=== PATIENT | male | born 1930 | race Caucasian/White ===

== ENCOUNTER 2017-04-09 21:47 | Inpatient (IN) | payer OTHER, BC ==
[~2017-04-09] VITALS: Ht 185.4 cm; Wt 76.7 kg
--- NOTE | ~2017-04-09 | EKG ---
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
--- NOTE | ~2017-04-09 | CATHLAB ---
[facility] [place] [address] INVASIVE PROCEDURE REPORT Name: EDGAR CORRAL Room #: 217-P [facility] IN ..#: [id number] Admission: 04/09/17 Attend Phys: Lowell Flores, Discharge: 04/15/17 Date of : 34 Date of Service: 04/23/17 0043 Report #: [id number] THIS REPORT FOR: //name// CC: Jj Urena DATE OF SERVICE: 04/12/2017 DATE OF SERVICE: 04/12/2017. INDICATIONS: An 86-year-old male patient with non-ST segment elevation myocardial infarction and previously undiagnosed ischemic cardiomyopathy. PROCEDURES PERFORMED: 1. Percutaneous transluminal coronary angioplasty of the first diagonal branch of the left anterior descending. 2. Percutaneous transluminal coronary angioplasty of the proximal and proximal mid left anterior descending artery. 3. Supervision of conscious sedation. CHANGE MANAGEMENT CONSULTANT: Dash Balbuena M.D. BRIEF DESCRIPTION OF PROCEDURE: After informed consent was obtained, the patient was brought to the cardiac catheterization laboratory in stable condition. ACT was obtained per standard protocol utilizing a modified Seldinger technique. A standard left JL4 guide was then advanced under fluoroscopic visualization present protocol and engaged to left coronary ostium where the guiding shots were obtained. An 0.014 wire was then advanced into the first diagonal branch and a 2.0 mm balloon was then positioned across the lesion. Multiple inflations were performed as documented in the chart. The result was significantly improved. The wire was then advanced into the mid and distal LAD and the balloon was brought to the proximal lesion which was heavily calcified and quite angulated. Multiple inflations of this 90% lesion were then performed with successful dilatation. Residual was 20-25%. Following the dilatation, attempted stent deployment that was carried forward was unable to deploy a stent to the region due to tortuosity. Wires were removed. Final images were obtained, pressures noted and the guide was removed. The patient tolerated the procedure well without any complications. FINDINGS: 1. FLUOROSCOPY: Under fluoroscopic visualization, there was extensive calcific plaquing along the epicardial coronary arteries. There was no plaquing on the valvular intramyocardial structures of the heart. 2. HEMODYNAMICS: A. Preprocedure aortic pressure 137/ . [facility] [address] [place] [address] INVASIVE PROCEDURE REPORT Name: EDGAR CORRAL Room #: 217-P [facility] IN [facility].#: [id number] Admission: 04/09/17 Attend Phys: Lowell Flores, Discharge: 04/15/17 Date of : 34 Date of Service: 04/23/17 0043 Report #: [id number] B. Postprocedure aortic pressure 131/79. 3. FLUOROSCOPY: Under fluoroscopic visualization, there was extensive calcific plaquing along the proximal left anterior and first diagonal branch. No significant calcification on the valvular intramyocardial structures of the heart were noted. 4. ANGIOGRAPHY: A. Preprocedure left anterior descending coronary anatomy: It is a moderate caliber type 3 vessel which has an angulated calcified 90% lesion proximally. It then reconstitutes itself giving rise to a first diagonal branch which is between 1.75 and 2.25 mm in diameter with a 90% lesion. The vessel continues on an anterolateral wall free of high-grade disease. The LAD proper then continues in the anterior interventricular sulcus giving rise to septal and diagonal branches and tapering rapidly as it hooks the apex and terminates in the posterior aspect of the inferoapical wall. B. POST-DILATATION ANGIOGRAPHY: Left anterior descending artery is unchanged except for the following at the site of previous high-grade disease at the first diagonal branch. The vessel is widely patent. Residual less than 20%. Flow is brisk and no loss of side branch, there is no distal embolization is present. The LAD proper has a residual 20-25% with widely patent and much smooth appearing edges. SAMREEN flow is 3. IMPRESSION: 1. Coronary artery disease, severe, single vessel. 2. Successful percutaneous revascularization of the first diagonal branch and the proximal LAD. 3. Recommendations are to optimize medical regimen. <ELECTRONICALLY SIGNED> By: Dash Balbuena MD 04/23/17 1747 0043 1322 Dash Balbuena MD /nt
--- NOTE | ~2017-04-09 | 2DMMODE ---
[facility] [place] [address] 2 D/M-MODE ECHOCARDIOGRAM Name: ELLISEDGAR Bhatt Room #: 217-P [facility] IN ..#: [id number] Admission: 04/09/17 Attend Phys: Lowell Flores, Discharge: Date of : 32 Date of Service: 04/10/17 1236 Report #: [id number] THIS REPORT FOR: //name// APPROVED REPORT Study performed: 04/10/2017 09:41:10 EXAM: Comprehensive 2D, Doppler, and color-flow Echocardiogram Patient Location: Echo lab Room #: [facility] Blood Pressure: 96/54 mmHg Other Information Study Quality: Good Indications Diabetes Chest Pain Hypertension/HDD 2D Dimensions RVDd: 40.34 mm LVEF(%): 37.32 (>50%) IVSd: 9.97 (7-11mm) LVOT Diam: 19.63 (18-24mm) LVDd: 64.12 mm PWd: 10.03 (7-11mm) Ascending Ao: 37.53 (22-36mm) LVDs: 52.30 (25-40mm) Aortic Root: 37.55 mm IVC: 19.00 mm Orona's LVEF: 37.32 % Volumes Left Atrial Volume (Systole) Single Plane 4CH: 70.16 mL Single Plane 2CH: 70.02 mL LA ESV Index: 38.00 mL/m2 Aortic Valve AoV Peak Syed.: 0.97 m/s AO Peak Gr.: 3.78 mmHg LVOT Max P.53 mmHg LVOT Max V: 0.94 m/s JULIANA Vmax: 2.92 cm2 Mitral Valve E/A Ratio: 2.4 [facility] [address] [place] [address] 2 D/M-MODE ECHOCARDIOGRAM Name: EDGAR CORRAL Room #: 217-P [facility] IN [facility]#: [id number] Admission: 04/09/17 Attend Phys: Lowell Flores, Discharge: Date of : 32 Date of Service: 04/10/17 1236 Report #: [id number] MV Decel. Time: 158.81 ms MV E Max Syed.: 0.88 m/s MV A Syed.: 0.36 m/s MV PHT: 46.05 ms IVRT: 124.57 ms Pulmonary Valve PV Peak Syed.: 0.86 m/s PV Peak Gr.: 2.95 mmHg Pulmonary Vein P Vein S: 0.82 m/s P Vein A: 0.10 m/s P Vein D: 0.19 m/s P Vein A Dur.: 79.6 msec P Vein S/D Ratio: 4.32 Tricuspid Valve RAP Estimate: 10.00 mmHg Left Ventricle Left ventricle is dilated. Inferolateral hypokinesis There is normal left ventricular wall thickness. Left ventricular systolic function is moderately decreased. LVEF is 35-40%. Left ventricular filling pattern is normal for age. Right Ventricle The right ventricle is normal size. The right ventricular systolic function is normal. Atria Left atrium is mildly dilated. The right atrium size is normal. Aortic Valve The aortic valve trileaflet, mildly calcified No aortic regurgitation. There is no aortic valvular stenosis. Mitral Valve The mitral valve is normal in structure. Moderate mitral regurgitation. No evidence of mitral valve stenosis. Tricuspid Valve The tricuspid valve is normal in structure. Mild tricuspid regurgitation. Pulmonic Valve The pulmonary valve is normal in structure. Trace to mild pulmonic regurgitation. [facility] [address] [place] [address] 2 D/M-MODE ECHOCARDIOGRAM Name: EDGAR CORRAL Room #: 217-P [facility] IN .R.#: [id number] Admission: 04/09/17 Attend Phys: Lowell Flores, Discharge: Date of : 32 Date of Service: 04/10/17 1236 Report #: [id number] Great Vessels Aortic root is mildly dilated. Aortic arch is not visualized. IVC is normal in size and collapses <50% with inspiration. Pericardium There is no pericardial effusion. There is no pleural effusion. <Conclusion> Left ventricular systolic function is moderately decreased. Inferolateral hypokinesis. LVEF 35-40%. The aortic valve trileaflet, mildly calcified There is no aortic valvular stenosis or insufficiency The mitral valve is normal in structure. Moderate mitral regurgitation. Pulmonary artery pressure could not be reliably ascertained. There is no pericardial effusion. <ELECTRONICALLY SIGNED> By: Tacho Laws MD, [facility] 04/10/17 1236 1236 1236 Tacho Laws MD, FACC /INF
--- NOTE | ~2017-04-09 | EKG ---
[address] [address] ELECTROCARDIOGRAM REPORT Name: EDGAR CORRAL Room #: 217-P ADM IN M.R.#: [id number] Admission: 04/09/17 Attend Phys: Lowell Flores DO Discharge: Date of : 32 Report #: [id number] THIS REPORT FOR: //name// [facility] ED Test Date: 2017-04-09 Test Time: 21:56:27 Pat Name: EDGAR CORRAL Department: Room: 217 Gender: M Fluid Power Mechanic: [id number] : 1930 Requested By: Geoffrey Irvin Order Number: [id number] MD: Guy Kwan Measurements Intervals [place] Rate: 153 P: 0 [place]: QRS: -45 QRSD: 156 T: 145 QT: 326 QTc: 521 Interpretive Statements Wide complex tachycardia LBBB, similar morphology to prior EKG. Electronically Signed On 04-10-2017 9:37:00 CDT by Guy Kwan [email or web address] <ELECTRONICALLY SIGNED> By: Guy Kwan MD 04/10/17 0937 2156 2156 Guy Kwan MD /LEANNA
--- NOTE | ~2017-04-09 | EKG ---
[address] [employer] [address] ELECTROCARDIOGRAM REPORT Name: EDGAR CORRAL Room #: 217-P ADM IN M.R.#: [id number] Admission: 04/09/17 Attend Phys: Lowell Flores DO Discharge: Date of : 32 Report #: [id number] THIS REPORT FOR: //name// [facility] Test Date: 2017-04-12 Test Time: 11:31:14 Pat Name: EDGAR CORRAL Department: Room: 217 P Gender: M Skirt Maker: FIORDALIZA : 1930 Requested By: Dash Balbuena Order Number: [id number] MD: Tacho Laws Measurements Intervals [place] Rate: 122 P: 0 [place]: QRS: -42 QRSD: 209 T: 93 QT: 398 QTc: 567 Interpretive Statements Sinus tachycardia Left bundle branch block Baseline wander in lead(s) I,III,aVL Compared to ECG 04/09/2017 23:24:47 heart rate has increased Electronically Signed On 04-14-2017 11:43:30 CDT by Tacho Laws [email or web address] <ELECTRONICALLY SIGNED> By: Tacho aLws MD, [facility] 04/14/17 1143 1131 1131 Tacho Laws MD, [facility] /EPI
[~2017-04-09 21:47] MED LIST: ASPIRIN EC325 M1 PO; BISA-LAX5 MG PO; CARVEDILOL6.25 MG PO; CIPROFLOXACIN500 M1 PO; CLINDAMYCIN 1%60 M1; COZAAR 25 MG TA25 M1 PO; FLOMAX0.4 MG PO; GLUCOTROL5 MG PO; KLOR-CON 1010 MEQ PO; LASIX 40 MG TAB40 M2 PO; LISINOPRIL2.5 MG PO; LOPID600 MG PO; METFORMIN HCL500 MG PO
[2017-04-09 22:00] VITALS: BP 83/61
[2017-04-09] MEDS ORDERED: PLAVIX 75 MG TA75 M1 PO (22:15)
[2017-04-09] MEDS ORDERED: METFORMIN HCL500 MG PO (22:15)
[2017-04-09] MEDS ORDERED: SPIRONOLACTONE25 MG PO (22:16)
[2017-04-09] MEDS ORDERED: PROSCAR 5MG TABL5 M1 PO (22:16)
[2017-04-09] MEDS ORDERED: ZOCOR20 MG PO (22:16)
[2017-04-09 22:20] LABS: ABSOLUTE NEUTROPHILS 10.3 thou/uL (1.4-8.2); BASOPHILS 0.5 % (0.0-2.0); EOSINOPHILS 0.6 % (0.0-3.0); HEMATOCRIT 41.3 % (42.0-52.0); HEMOGLOBIN 13.9 gm/dL (14.0-18.0); LYMPHOCYTES 9.9 % (24.0-44.0); MANUAL DIFF NO; MCH 30.2 pg (26.0-34.0); MCHC 33.6 g/dL (28.0-37.0); MONOCYTES 5.4 % (1.0-8.0); PLATELET COUNT 162 thou/uL (150-400); POLYS 83.6 % (36.0-66.0); RBC 4.59 mil/uL (4.50-6.00); RDW 14.9 % (10.5-14.5); WBC 12.3 thou/uL (4.0-11.0)
[2017-04-09 22:25] LABS: CALCIUM 8.8 mg/dL (8.5-10.1); CREATININE 1.9 mg/dL (0.7-1.3); POTASSIUM 5.6 mmol/L (3.5-5.1)
[2017-04-09 22:35] LABS: APTT 27.3 Seconds (24.5-32.8); PROTIME 10.6 Seconds (9.3-11.4)
[2017-04-09 22:42] LABS: ALBUMIN 3.6 g/dL (3.4-5.0); CK-MB MASS 9.6 ng/mL (<0.5-3.6); MAGNESIUM 2.1 mg/dL (1.8-2.4); TOTAL BILIRUBIN 0.6 mg/dL (<0.1-1.0); TOTAL PROTEIN 6.6 g/dL (6.4-8.2)
[2017-04-09 22:46] LABS: TROPONIN-I 1.33 ng/mL (<0.04-0.07)
[2017-04-10] VITALS (9 sets, daily range): BP systolic 84–118; BP diastolic 44–56
[2017-04-10 07:29] LABS: ANION GAP 9 mmol/L (7-16); BUN 39 mg/dL (7-18); CALCIUM 8.2 mg/dL (8.5-10.1); CHLORIDE 107 mmol/L (98-107); CHOLESTEROL 105 mg/dL (<200); CO2 22 mmol/L (21-32); CREATININE 1.6 mg/dL (0.7-1.3); GLUCOSE 190 mg/dL (74-106); HDL CHOLESTEROL 44 mg/dL (>40); LDL CHOLESTEROL 51 mg/dL (<100); SODIUM 138 mmol/L (136-145); TC:HDL 2.4 Ratio (Not establshd); TRIGLYCERIDE 52 mg/dL (<150); VLDL 10 mg/dL (<40)
[2017-04-10 07:32] LABS: POTASSIUM 4.2 mmol/L (3.5-5.1)
[2017-04-11 02:11] LABS: GLYCOHEMOGLOBIN (HGB A1C) 6.4 % (4.8-5.6)
[2017-04-11 02:11] LABS: GLYCOHEMOGLOBIN (HGB A1C) 6.6 % (4.8-5.6)
[2017-04-11 03:55] LABS: ABSOLUTE NEUTROPHILS 7.5 thou/uL (1.4-8.2); BASOPHILS 0.5 % (0.0-2.0); EOSINOPHILS 3.6 % (0.0-3.0); HEMATOCRIT 36.8 % (42.0-52.0); HEMOGLOBIN 12.6 gm/dL (14.0-18.0); LYMPHOCYTES 14.5 % (24.0-44.0); MCH 30.7 pg (26.0-34.0); MCHC 34.3 g/dL (28.0-37.0); MCV 89.5 fL (80.0-100.0); MONOCYTES 7.7 % (1.0-8.0); PLATELET COUNT 115 thou/uL (150-400); POLYS 73.7 % (36.0-66.0); RBC 4.11 mil/uL (4.50-6.00); RDW 14.7 % (10.5-14.5); WBC 10.1 thou/uL (4.0-11.0)
[2017-04-11 03:58] LABS: MANUAL DIFF NO
[2017-04-11 04:12] LABS: ALBUMIN 3.1 g/dL (3.4-5.0); CALCIUM 8.4 mg/dL (8.5-10.1); CREATININE 1.3 mg/dL (0.7-1.3); POTASSIUM 3.9 mmol/L (3.5-5.1); TOTAL BILIRUBIN 0.8 mg/dL (<0.1-1.0); TOTAL PROTEIN 5.6 g/dL (6.4-8.2)
[2017-04-11 04:17] VITALS: BP 111/49
[2017-04-11 08:00] VITALS: BP 110/57
[2017-04-11 12:00] VITALS: BP 116/58
[2017-04-11 16:00] VITALS: BP 126/61
[2017-04-11 19:26] VITALS: BP 128/64
[2017-04-11 23:19] VITALS: BP 136/72
[2017-04-11 23:41] LABS: APTT 28.5 Seconds (24.5-32.8); INR 1.1
[2017-04-12] VITALS (17 sets, daily range): BP systolic 96–138; BP diastolic 57–88
[2017-04-13] VITALS (10 sets, daily range): BP systolic 89–102; BP diastolic 25–57
[2017-04-13 05:55] LABS: HEMATOCRIT 37.2 % (42.0-52.0); HEMOGLOBIN 12.6 gm/dL (14.0-18.0); MCH 29.9 pg (26.0-34.0); MCHC 33.9 g/dL (28.0-37.0); PLATELET COUNT 112 thou/uL (150-400); RBC 4.23 mil/uL (4.50-6.00); RDW 14.2 % (10.5-14.5)
[2017-04-13 06:02] LABS: CALCIUM 8.2 mg/dL (8.5-10.1); CREATININE 1.6 mg/dL (0.7-1.3); POTASSIUM 3.5 mmol/L (3.5-5.1)
[2017-04-13 06:06] LABS: MANUAL DIFF YES
[2017-04-13 08:23] LABS: ABSOLUTE NEUTROPHILS 11.8 thou/uL (1.4-8.2); TOTAL CELL COUNT 100
[2017-04-13 08:25] LABS: ANISOCYTOSIS 1+
[2017-04-14 04:00] VITALS: BP 93/56
[2017-04-14 04:28] LABS: BASOPHILS 0.4 % (0.0-2.0); EOSINOPHILS 2.4 % (0.0-3.0); HEMATOCRIT 35.2 % (42.0-52.0); HEMOGLOBIN 12.1 gm/dL (14.0-18.0); LYMPHOCYTES 9.9 % (24.0-44.0); MCH 30.2 pg (26.0-34.0); MCHC 34.3 g/dL (28.0-37.0); MCV 88.1 fL (80.0-100.0); MONOCYTES 9.5 % (1.0-8.0); PLATELET COUNT 111 thou/uL (150-400); POLYS 77.8 % (36.0-66.0); RBC 3.99 mil/uL (4.50-6.00); RDW 14.5 % (10.5-14.5); WBC 10.3 thou/uL (4.0-11.0)
[2017-04-14 04:30] LABS: MANUAL DIFF NO
[2017-04-14 04:36] LABS: CALCIUM 8.3 mg/dL (8.5-10.1); CREATININE 1.7 mg/dL (0.7-1.3); POTASSIUM 3.1 mmol/L (3.5-5.1)
[2017-04-14 08:48] VITALS: BP 107/47
[2017-04-14 12:45] VITALS: BP 97/41
[2017-04-14 16:01] VITALS: BP 95/53
[2017-04-14 19:13] VITALS: BP 97/47
[2017-04-15 04:37] VITALS: BP 101/56
[2017-04-15 05:53] LABS: CALCIUM 8.2 mg/dL (8.5-10.1); CREATININE 1.4 mg/dL (0.7-1.3)
[2017-04-15 08:09] VITALS: BP 106/54
[2017-04-15] MEDS ORDERED: ASPIRIN EC325 MG PO (09:42)
[2017-04-15] MEDS ORDERED: BRILINTA90 MG PO (09:43)
[2017-04-15] MEDS ORDERED: ALDACTONE25 MG PO (09:43)
[2017-04-15] MEDS ORDERED: PACERONE 200 M200 M1 PO (09:43)
[2017-04-15] MEDS ORDERED: NITROGLYCERIN0.4 MG SUBLING (09:43)
[2017-04-15 10:25] VITALS: BP 106/54
[2017-04-15 11:19] VITALS: BP 106/54
== END 2017-04-15 11:45 | disposition home or self-care (01) | DRG 250 ==
LOC: ER 21:47 → EROBS 23:33 → 2N 23:33
PROVIDERS: Emergency Medicine; Family Medicine; Internal Medicine; Nurse Practitioner Family
PROC: 5A2204Z Restoration of Cardiac Rhythm, Single (ICD-10-PCS; principal; 2017-04-09)
PROC: B548ZZA Ultrasonography of Superior Vena Cava, Guidance (ICD-10-PCS; 2017-04-10)
PROC: 02HV33Z Insertion of Infusion Device into Superior Vena Cava, Percutaneous Approach (ICD-10-PCS; 2017-04-10)
PROC: B2151ZZ Fluoroscopy of Left Heart using Low Osmolar Contrast (ICD-10-PCS; 2017-04-12)
PROC: 4A023N7 Measurement of Cardiac Sampling and Pressure, Left Heart, Percutaneous Approach (ICD-10-PCS; 2017-04-12)
PROC: 02703ZZ Dilation of Coronary Artery, One Artery, Percutaneous Approach (ICD-10-PCS; 2017-04-12)
PROC: B2111ZZ Fluoroscopy of Multiple Coronary Arteries using Low Osmolar Contrast (ICD-10-PCS; 2017-04-12)
DX: I21.4 Non-ST elevation (NSTEMI) myocardial infarction (principal); I50.43 Acute on chronic combined systolic (congestive) and diastolic (congestive) heart failure; I47.2 Ventricular tachycardia; N17.9 Acute kidney failure, unspecified; I13.0 Hypertensive heart and chronic kidney disease with heart failure and stage 1 through stage 4 chronic kidney disease, or unspecified chronic kidney disease; E78.5 Hyperlipidemia, unspecified; E87.5 Hyperkalemia; I44.7 Left bundle-branch block, unspecified; F17.210 Nicotine dependence, cigarettes, uncomplicated; E11.22 Type 2 diabetes mellitus with diabetic chronic kidney disease; N18.9 Chronic kidney disease, unspecified; I95.9 Hypotension, unspecified; I25.5 Ischemic cardiomyopathy; I25.10 Atherosclerotic heart disease of native coronary artery without angina pectoris; N40.0 Benign prostatic hyperplasia without lower urinary tract symptoms; J44.9 Chronic obstructive pulmonary disease, unspecified; I24.9 Acute ischemic heart disease, unspecified; Z95.820 Peripheral vascular angioplasty status with implants and grafts; Z87.442 Personal history of urinary calculi; Z88.0 Allergy status to penicillin; Z79.82 Long term (current) use of aspirin; Z79.899 Other long term (current) drug therapy
CPT/HCPCS: 10081; 27000

== ENCOUNTER 2017-06-03 10:42 | Observation (INO) | payer OTHER, BC ==
[~2017-06-03] VITALS: Ht 185.4 cm; Wt 77.1 kg
--- NOTE | ~2017-06-03 | CATHLAB ---
[facility] [place] [address] INVASIVE PROCEDURE REPORT Name: ELLISEDGAR Bhatt Room #: 209-P [facility] IN M.R.#: [id number] Admission: 06/03/17 Attend Phys: Dash Orlando Discharge: 06/04/17 Date of : 32 Date of Service: 06/10/17 1746 Report #: [id number] THIS REPORT FOR: //name// APPROVED REPORT Patient Status: Observation Room #: 2 [place] Event Personnel: Dash Balbuena, Occupational Health Physician Nataly Adams, HANDY Corral, HANDY Li, Scrub Exam: BiV ICD, selective left coronary angiography Indications: Heart Failure, ischemic cardiomyopathy The patient is a 86 year-old male with a history of Cardiomyopathy. Patient Info BUN: 23 Creatine: 1.4 Reason for implant: Primary prevention Intraoperative Conscious Sedation Sedation start time: 1644 Case end Time: 1925 Versed 4.0 mg Demoral 50mgs Implanted Devices: RV LEAD, [employer] ARMANI MODEL #[id number], SN# [id number], EXP 02/22/2018 RA LEAD, [employer] ARMANI MODEL #[id number], SN#[id number], EXP 03/24/2020 LV LEAD, ST ARMANI MODEL #[id number] SN# [id number], EXP 01/23/2020 BiV ICD, ST ARMANI MODEL # [id number], SN# [id number], EXP 10/24/2018 Procedure After informed consent was obtained the patient was brought to the cardiac catheterization laboratory in stable condition. He was prepped and draped in usual sterile manner. Utilizing a modified Seldinger technique and a 4 Ukrainian sheath right femoral artery was then cannulated and angiography performed utilizing a Karine standard left diagnostic catheters. These images were then stored as a roadmap. Subsequently this the chest was prepped and draped in usual sterile manner. Sedation ensued as stated above. Local anesthetic was instilled in the incision site and utilizing both sharp and blunt dissection a pocket was generated. Utilizing a modified Denton technique and micropuncture needle 3 separate sticks to access the left subclavian vein were performed. 0[address] wires were left in place as sheath were individually inserted for lead [facility] [address] [place] [address] INVASIVE PROCEDURE REPORT Name: EDGAR CORRAL Room #: 209-P [facility] IN [facility].#: [id number] Admission: 06/03/17 Attend Phys: Dash Orlando Discharge: 06/04/17 Date of : 32 Date of Service: 06/10/17 1746 Report #: [id number] placement. These were then advanced under fluoroscopic visualization and positioned in the right ventricular mid septum and the atrial appendage. The left coronary sinus was then accessed utilizing a standard long sheath and angiography of the coronary sinus performed. Utilizing a 014 wire was advanced into the distal lateral coronary vein and the left ventricular lead was then advanced under fluoroscopy and see placed. Owing capture and sensing thresholds of all the individual leads the device were removed under fluoroscopic visualization. These were secured percent of protocol utilizing nonabsorbable 2-0 suture material. The pocket was irrigated with antibiotic solution chest as was the chest is advised to leads and about prior to insertion into the pocket. It was closed with nonabsorbable 2-0 running locking stitches in 2 layers deep and the skin was then closed with a 30 absorbable running subcuticular suture. Patient tolerated procedure well Steri-Strips 4 x 4 OpSite were utilized immobilizer was placed Complications The patient tolerated the procedure well and there were no complications associated with the procedure. Conclusion 1. Severe coronary artery disease with moderate to severe diffuse coronary artery disease involving the left anterior descending left circumflex 2. Successful implantation of a [employer] Armani's biventricular ICD pacer under fluoroscopic visualization. 3. Accessed for narrowing of the left ventricular conduction times by 55 ms Recommendations 1. Routine post Bi-ventricular ICD implantation protocol <ELECTRONICALLY SIGNED> By: Dash Balbuena MD 06/10/171745 45 45 Dash Balbuena MD /INF
[~2017-06-03 10:42] MED LIST changes: +ALDACTONE25 MG PO; +ASPIRIN EC325 MG PO; +BRILINTA90 MG PO; +NITROGLYCERIN0.4 MG SUBLING; +PACERONE 200 M200 M1 PO; +PLAVIX 75 MG TA75 M1 PO; +PROSCAR 5MG TABL5 M1 PO; +SPIRONOLACTONE25 MG PO; +ZOCOR20 MG PO
[2017-06-03] MEDS ORDERED: ASPIR 8181 MG PER TUBE (11:26)
[2017-06-03] MEDS ORDERED: PLAVIX 75 MG TA75 M1 PO (11:28)
[2017-06-03 11:51] VITALS: BP 108/46
[2017-06-03 12:11] LABS: ABSOLUTE NEUTROPHILS 4.6 thou/uL (1.4-8.2); BASOPHILS 0.9 % (0.0-2.0); EOSINOPHILS 4.2 % (0.0-3.0); HEMATOCRIT 36.1 % (42.0-52.0); HEMOGLOBIN 12.3 gm/dL (14.0-18.0); LYMPHOCYTES 16.8 % (24.0-44.0); MCH 30.8 pg (26.0-34.0); MCHC 33.9 g/dL (28.0-37.0); MCV 90.7 fL (80.0-100.0); MONOCYTES 8.8 % (1.0-8.0); PLATELET COUNT 145 thou/uL (150-400); POLYS 69.3 % (36.0-66.0); RBC 3.98 mil/uL (4.50-6.00); WBC 6.7 thou/uL (4.0-11.0)
[2017-06-03 12:12] LABS: MANUAL DIFF NO
[2017-06-03 12:18] LABS: CALCIUM 8.6 mg/dL (8.5-10.1); CREATININE 1.4 mg/dL (0.7-1.3); POTASSIUM 4.5 mmol/L (3.5-5.1)
[2017-06-03 23:43] VITALS: BP 123/71
[2017-06-04 07:15] VITALS: BP 106/60
[2017-06-04 07:56] VITALS: BP 106/60
[2017-06-04 09:19] VITALS: BP 106/60
[2017-06-04] MEDS ORDERED: AMIODARONE HCL100 MG PO (09:54)
== END 2017-06-04 11:35 | disposition home or self-care (01) ==
LOC: CATH 10:42 → 2N 20:57
PROVIDERS: Internal Medicine
DX: I25.5 Ischemic cardiomyopathy (principal); N18.9 Chronic kidney disease, unspecified; K59.00 Constipation, unspecified; R79.89 Other specified abnormal findings of blood chemistry; J96.91 Respiratory failure, unspecified with hypoxia; E87.5 Hyperkalemia; R33.9 Retention of urine, unspecified; A41.9 Sepsis, unspecified organism; R65.20 Severe sepsis without septic shock

== ENCOUNTER → 2018-10-31 | Outpatient (CLI) | payer OTHER, BC ==
[~2018-10-31] MED LIST changes: +AMIODARONE HCL100 MG PO; +ASPIR 8181 MG PER TUBE
--- NOTE | ~2018-10-31 | 2DMMODE ---
[facility] [address] [place] [address] 2 D/M-MODE ECHOCARDIOGRAM Name: ELLISEDGAR Bhatt Room #: REG Rea#: [id number] Admission: 10/31/18 Attend Phys: Dash Orlando Discharge: Date of : 32 Date of Service: 10/31/18 1354 Report #: [id number] THIS REPORT FOR: //name// APPROVED REPORT Study performed: 10/31/2018 12:56:51 EXAM: Comprehensive 2D, Doppler, and color-flow Echocardiogram Patient Location: Out-Patient Room #: Echo lab 2 Status: routine BSA: 2.08 HR: 60 bpm BP: 126/74 mmHg Rhythm: Pacemaker Other Information Study Quality: Adequate Indications Pacemaker Cardiomyopathy 2D Dimensions RVDd: 31.45 mm IVSd: 10.68 (7-11mm) LVOT Diam: 21.30 (18-24mm) LVDd: 60.86 mm PWd: 11.19 (7-11mm) Ascending Ao: 34.75 (22-36mm) LVDs: 47.47 (25-40mm) Aortic Root: 39.91 mm IVC: 19.00 mm Volumes Left Atrial Volume (Systole) Single Plane 4CH: 41.71 mL Single Plane 2CH: 56.51 mL LA ESV Index: 26.00 mL/m2 Aortic Valve AoV Peak Syed.: 0.96 m/s AO Peak Gr.: 3.69 mmHg LVOT Max P.47 mmHg LVOT Max V: 0.79 m/s JULIANA Vmax: 2.92 cm2 Mitral Valve E/A Ratio: 0.8 MV Decel. Time: 360.50 ms [facility] [address] [place] [address] 2 D/M-MODE ECHOCARDIOGRAM Name: EDGAR CORRAL Room #: REG [facility]#: [id number] Admission: 10/31/18 Attend Phys: Dash Orlando Discharge: Date of : 34 Date of Service: 10/31/18 1354 Report #: [id number] E Max Syed.: 0.53 m/s MV A Syed.: 0.69 m/s MV PHT: 104.55 ms IVRT: 156.86 ms Pulmonary Valve PV Peak Syed.: 0.82 m/s PV Peak Gr.: 2.70 mmHg Pulmonary Vein P Vein S: 0.50 m/s P Vein A: 0.22 m/s P Vein D: 0.28 m/s P Vein A Dur.: 106.1 msec P Vein S/D Ratio: 1.79 Tricuspid Valve TR Peak Syed.: 2.51 m/s TR Peak Gr.: 25.25 mmHg PA Pressure: 30.00 mmHg Left Ventricle Left ventricle is dilated. There is global hypokinesis of the left ventricle. There is normal left ventricular wall thickness. Left ventricular systolic function is mild to moderately decreased. LVEF is 40-45%. Grade I - abnormal relaxation pattern. Right Ventricle The right ventricle is normal size. The right ventricular systolic function is normal. Pacemaker lead is present in the right ventricle. Atria The left atrium size is normal. The right atrium size is normal. Pacemaker lead is present in the right atrium. Aortic Valve The aortic valve is normal in structure. No aortic regurgitation is present. There is no aortic valvular stenosis. Mitral Valve The mitral valve is normal in structure. Mild mitral regurgitation. No evidence of mitral valve stenosis. Tricuspid Valve The tricuspid valve is normal in structure. There is trace to mild tricuspid regurgitation. Estimated PAP 30 mmHg. There is no pulmonary hypertension. Pulmonic Valve [address] [address] 2 D/M-MODE ECHOCARDIOGRAM Name: ELLISEDGAR Nova Room #: REG Rea#: [id number] Admission: 10/31/18 Attend Phys: Dash Orlando Discharge: Date of : 34 Date of Service: 10/31/18 1354 Report #: [id number] The pulmonary valve is normal in structure. Trace pulmonic regurgitation. Great Vessels The aortic root is normal in size. IVC is normal in size and collapses >50% with inspiration. Pericardium There is no pericardial effusion. <Conclusion> Left ventricle is dilated. LVEF is 40-45%. There is global hypokinesis of the left ventricle. Pacemaker lead is present in the right ventricle. The right atrium size is normal. Pacemaker lead is present in the right atrium. The aortic valve is normal in structure. The mitral valve is normal in structure. Mild mitral regurgitation. The tricuspid valve is normal in structure. There is trace to mild tricuspid regurgitation. Estimated PAP 30 mmHg. There is no pulmonary hypertension. The pulmonary valve is normal in structure. Trace pulmonic regurgitation. The aortic root is normal in size. There is no pericardial effusion. <ELECTRONICALLY SIGNED> By: Dash Balbuena MD 10/31/18 1354 1354 1354 Dash Balbuena MD /INF
== END ==
LOC: CV 11:43
DX: I34.0 Nonrheumatic mitral (valve) insufficiency (principal); I25.5 Ischemic cardiomyopathy; Z95.0 Presence of cardiac pacemaker

== ENCOUNTER → 2020-06-13 | Outpatient (CLI) | payer OTHER, BC | LOC: SJCVC 10:11 | PROVIDERS: ATTEND Internal Medicine | DX: I25.5 Ischemic cardiomyopathy (principal); I11.0 Hypertensive heart disease with heart failure; I50.20 Unspecified systolic (congestive) heart failure; I25.10 Atherosclerotic heart disease of native coronary artery without angina pectoris; J44.9 Chronic obstructive pulmonary disease, unspecified; I25.2 Old myocardial infarction; E11.9 Type 2 diabetes mellitus without complications; F17.210 Nicotine dependence, cigarettes, uncomplicated; Z82.49 Family history of ischemic heart disease and other diseases of the circulatory system; Z79.82 Long term (current) use of aspirin; Z79.84 Long term (current) use of oral hypoglycemic drugs; Z79.899 Other long term (current) drug therapy ==

== ENCOUNTER → 2020-11-10 | Outpatient (CLI) | payer OTHER, BC | LOC: SJCVCIMAG 10:16 | PROVIDERS: ATTEND Internal Medicine | DX: I08.1 Rheumatic disorders of both mitral and tricuspid valves (principal); I25.10 Atherosclerotic heart disease of native coronary artery without angina pectoris; I25.5 Ischemic cardiomyopathy; F17.200 Nicotine dependence, unspecified, uncomplicated; Z95.0 Presence of cardiac pacemaker; Z79.899 Other long term (current) drug therapy ==

== ENCOUNTER → 2021-03-20 | Outpatient (CLI) | payer OTHER, BC | LOC: RAD 12:01 | PROVIDERS: ATTEND Family Medicine | DX: S42.415A Nondisplaced simple supracondylar fracture without intercondylar fracture of left humerus, initial encounter for closed fracture (principal); M25.422 Effusion, left elbow; M19.021 Primary osteoarthritis, right elbow; Z95.0 Presence of cardiac pacemaker; X58.XXXA Exposure to other specified factors, initial encounter; Y93.89 Activity, other specified; Y92.89 Other specified places as the place of occurrence of the external cause; Y99.8 Other external cause status ==

== ENCOUNTER 2021-04-08 10:10 | Inpatient (IN) | payer OTHER, BC ==
[~2021-04-08] VITALS: Ht 188 cm; Wt 83.1 kg
[2021-04-08] VITALS (9 sets, daily range): BP systolic 62–94; BP diastolic 43–65
[2021-04-08 11:03] LABS: ABSOLUTE NEUTROPHILS 7.2 thou/uL (1.4-8.2); BASOPHILS 0.6 % (0.0-2.0); EOSINOPHILS 3.1 % (0.0-3.0); HEMATOCRIT 38.9 % (42.0-52.0); LYMPHOCYTES 11.4 % (24.0-44.0); MCH 31.7 pg (26.0-34.0); MCHC 33.4 g/dL (28.0-37.0); MCV 95.1 fL (80.0-100.0); PLATELET COUNT 164 thou/uL (150-400); POLYS 76.9 % (36.0-66.0); RBC 4.09 mil/uL (4.50-6.00); RDW 14.2 % (10.5-14.5); WBC 9.4 thou/uL (4.0-11.0)
[2021-04-08 11:16] LABS: ALBUMIN 2.9 g/dL (3.4-5.0); CALCIUM 8.6 mg/dL (8.5-10.1); CREATININE 2.2 mg/dL (0.7-1.3); TOTAL BILIRUBIN 0.4 mg/dL (0.2-1.0); TOTAL PROTEIN 6.2 g/dL (6.4-8.2)
[2021-04-08 11:47] LABS: POTASSIUM 6.1 mmol/L (3.5-5.1)
[2021-04-08] MEDS ORDERED: GLUCOTROL5 MG PO (11:49)
[2021-04-08] MEDS ORDERED: LOSARTAN POTASS50 MG PO (11:50)
[2021-04-08 14:09] LABS: URINE BLOOD 2+ (Negative); URINE CLARITY CLEAR; URINE COLOR YELLOW; URINE GLUCOSE-RANDOM* 1+ (Negative); URINE KETONES TRACE (Negative); URINE PROTEIN (DIPSTICK) 1+ (Negative); URINE SPECIFIC GRAVITY >= 1.030 (1.005-1.035)
[2021-04-08 14:10] LABS: ICTOTEST (BILI CONFIRMATORY) Negative (Negative); URINE BILIRUBIN NEGATIVE (Negative); URINE LEUKOCYTES-REFLEX 2+ (Negative); URINE NITRITE-REFLEX POSITIVE (Negative)
[2021-04-08 14:23] LABS: SQUAMOUS 4-10 Moderate /LPF (0-3)
[2021-04-08 14:24] LABS: URINE RBC 3-10 Few /HPF (NONE SEEN); URINE WBC-REFLEX >25 Many /HPF (0-5)
[2021-04-08 14:25] LABS: CASTS None Seen /LPF (None Seen); CRYSTALS None Seen /LPF (None Seen)
[2021-04-08 16:43] LABS: TOTAL PROTEIN 6.2 g/dL (6.4-8.2)
--- NOTE | 2021-04-08 17:27 | NUR ---
PT CARE ASSUMED AT 1430. ASSESSMENTS CHARTED. MEDICATIONS CHARTED. RFA IV. SINUS TACHYCARDIA. NPC. STAND-BY ASSIST. ACHS.
[2021-04-09] VITALS (8 sets, daily range): BP systolic 10–110; BP diastolic 46–59
--- NOTE | 2021-04-09 03:52 | NUR ---
Assumed pt care at 1900. Pt is laying in bed. Alert and oriented. CABLE ENGINEER notified of urine result. ABX ordered, Low BP and elevated HR noted at the start of the shift. Assessment completed and documented. Scheduled meds administered to pt. During the shift, patient expereinced a syncopal episode. Patient was assisted to the BSC by CARGO MATE. While on the bedside commode, RN noticed that patient became sluggish and diaphoretic. Upon assessment blood pressure was low, and blood sugar was 41. Blood suagr was treated. It was then noted that patient's pacemaker had started to work. Heart rate under control. HH in the 60's AV-PACED. Patient denies any pain. Blood sugar recheck was 74. Patient is stable through the night. Continue to monitor, no further needs at this time.
[2021-04-09 04:48] LABS: CREATININE 1.8 mg/dL (0.7-1.3); MAGNESIUM 2.3 mg/dL (1.8-2.4)
[2021-04-09 04:50] LABS: POTASSIUM 4.3 mmol/L (3.5-5.1)
--- NOTE | 2021-04-09 08:13 | HC ---
[facility] [place] [address] CONSULTATION Name: EDGAR CORRAL Room #: 210-P [facility] IN M.R.#: [id number] Admission: 04/08/21 Attend Phys: Eric Quinones MD Discharge: Date of : 32 Report #: [id number] THIS REPORT FOR: cc: Mick Urena MD, Rene P. MD Park, Jin S. MD ~ DOC #: [id number] Italo Hinojosa MD DATE OF SERVICE: 04/08/2021 CARDIOLOGY CONSULTATION CHIEF COMPLAINT: Near syncope. HISTORY OF PRESENT ILLNESS: This is an 89-year-old gentleman with a history of CAD, cardiomyopathy, ICD, diabetes mellitus, chronic back pains, renal insufficiency, presenting with near syncope. About 4 weeks ago, he fractured his left forearm, wearing a cast. Over the past few months, the patient has had diminished oral intake, no appetite. Several weeks ago, he started to feel lightheaded with standing. It was at that time that they stopped the furosemide and decreased his carvedilol. However, he continued to take Aldactone. Last evening, while walking back from the bathroom, he proceeded to fall, caught by his son. The patient denies any chest pains, dyspnea, or loss of consciousness. In the ER, he was noted to have a systolic blood pressure of 65 mmHg, increased to 90 mmHg after 1 liter of fluids. Noted to have elevated proBNP level. He is also tachycardic with a heart rate of 128 beats per minute. PAST MEDICAL HISTORY: CAD, diabetes mellitus, ICD, ischemic cardiomyopathy, EF around 40%, chronic renal insufficiency with a creatinine of 2.45. ALLERGIES: PENICILLIN. MEDICATIONS: At home include Coreg, lisinopril 2.5, glipizide, Aldactone 25, amiodarone 100 mg daily, clopidogrel, metformin, tamsulosin, simvastatin. SOCIAL HISTORY: Tobacco use, yes. FAMILY HISTORY: Negative for premature CAD. REVIEW OF SYSTEMS: A full 10-point review of systems performed. Only the pertinent positives and negatives are described in the HPI. PHYSICAL EXAMINATION: VITAL SIGNS: Blood pressure initially was 62 increasing to 95 mm over 50, heart rate is 128 beats per minute. GENERAL APPEARANCE: An elderly appearing male in no acute distress. [address] [address] CONSULTATION Name: EDGAR CORRAL Room #: 210-P [facility] IN M.R.#: [id number] Admission: 04/08/21 Attend Phys: Eric Quinones MD Discharge: Date of : 32 Report #: [id number] HEENT: Normocephalic, atraumatic. Oral mucosa moist. NECK: Supple. LUNGS: Clear to auscultation. CARDIAC: Tachycardic. S1, S2 positive. ABDOMEN: Soft, nontender. EXTREMITIES: No edema, no cyanosis. LABORATORY DATA: White count 9.4, hemoglobin 13.0. Creatinine is 2.2. Troponin 0.06. ProBNP is over 10,000. Chest x-ray is unremarkable. ASSESSMENT AND PLAN: 1. Near syncope, most likely due to dehydration/orthostatic hypotension. Would hold all blood pressure medications including Aldactone. Continue with gentle hydration. 2. Ischemic cardiomyopathy, stable at this time, clinically. Does have elevated proBNP. However, he is not short of breath and his lungs are clear on examination. No evidence for heart failure at this time. 3. Tachycardia, ECG reveals either a sinus tachycardia with first degrees versus a paced rhythm. We will continue to monitor. Once his blood pressure is stabilized, we will resume his low dose Coreg. Continue on amiodarone. 4. Diabetes mellitus, continue home medications. Check fingersticks. Italo Hinojosa MD JP/LANE <ELECTRONICALLY SIGNED> By: Italo Hinojosa MD 04/09/21 0813 1159 2223 Italo Hinojosa MD /nt
--- NOTE | 2021-04-09 16:51 | NUR ---
PT CARE ASSUMED AT 0700. ASSESSMENTS CHARTED. MEDICATIONS CHARTED. RFA IV. AV PACED. ACHS. BROKEN LEFT FOREARM PRIOR TO ADMITTANCE. SYNCOPAL EPISODE LAST NIGHT. URINE RESIDUAL AFTER 10 HOURS 360 ML. DIET-HH. LEADS AND ELECTRODES CHANGED OUT, MONITOR KEPT SHOWING ASYSTOLE, CORRECTED THE ISSUE.
[2021-04-10 03:39] LABS: HEMATOCRIT 36.1 % (42.0-52.0); HEMOGLOBIN 11.9 gm/dL (14.0-18.0); MCH 31.8 pg (26.0-34.0); MCV 96.4 fL (80.0-100.0); RBC 3.75 mil/uL (4.50-6.00); RDW 14.2 % (10.5-14.5); WBC 8.4 thou/uL (4.0-11.0)
[2021-04-10 03:43] VITALS: BP 126/60
[2021-04-10 03:54] LABS: CALCIUM 7.9 mg/dL (8.5-10.1); CREATININE 1.4 mg/dL (0.7-1.3); MAGNESIUM 2.1 mg/dL (1.8-2.4)
[2021-04-10 07:10] VITALS: BP 140/66
--- NOTE | 2021-04-10 08:33 | EKG ---
[address] [place] [address] ELECTROCARDIOGRAM REPORT Name: EDGAR CORRAL Room #: 210-P ADM IN M.R.#: [id number] Admission: 04/08/21 Attend Phys: Eric Quinones MD Discharge: Date of : 32 Report #: [id number] 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: JCHAIGISSELLEZ : 1930 Requested By: Petty Hutchins Order Number: [id number] MD: Tacho Laws Measurements Intervals [place] Rate: 128 P: [place]: QRS: -57 QRSD: 178 T: 124 QT: 378 QTc: 552 Interpretive Statements Wide-complex tachycardia, possible ventricular tachycardia Left bundle branch block No previous ECGs available for comparison Electronically Signed On 04-10-2021 8:33:33 CDT by Tacho Laws [email or web address] <ELECTRONICALLY SIGNED> By: Tacho Laws MD, [facility] 04/10/21 0833 1053 1053 Tacho Laws MD, FACC /EPI
[2021-04-10 10:57] VITALS: BP 120/67
--- NOTE | 2021-04-10 14:03 | 2DMMODE ---
[facility] [place] [address] 2 D/M-MODE ECHOCARDIOGRAM Name: EDGAR CORRAL Room #: 210-P ADM IN M.R.#: [id number] Admission: 04/08/21 Attend Phys: Eric Quinones MD Discharge: Date of : 32 Report #: [id number] THIS REPORT FOR: cc: Mick Urena MD, Rene P. MD Lammoglia, Francisco J. MD ~ APPROVED REPORT Study performed: 04/10/2021 12:51:08 EXAM: Comprehensive 2D, Doppler, and color-flow Echocardiogram Patient Location: Bedside Room #: 210 Status: routine BSA: 2.09 HR: 68 bpm BP: 140/66 mmHg Rhythm: NSR Other Information Study Quality: Fair/low windows. Technically limited study due to flat on back, heavy breathing/lung artifact. Indications Presyncopal event, SVT. Hx: ICD, CAD, ISCM. 2D Dimensions RVDd: 36.64 mm IVSd: 11.18 (7-11mm) LVOT Diam: 22.28 (18-24mm) LVDd: 49.63 mm PWd: 9.73 (7-11mm) LVDs: 42.24 (25-40mm) Aortic Root: 43.07 mm Volumes Left Atrial Volume (Systole) Single Plane 4CH: 50.97 mL Single Plane 2CH: 86.16 mL LA ESV Index: 36.00 mL/m2 Aortic Valve AoV Peak Syed.: 1.16 m/s AO Peak Gr.: 5.42 mmHg LVOT Max P.26 mmHg [facility] [address] [place] [address] 2 D/M-MODE ECHOCARDIOGRAM Name: ELLISEDGAR Bhatt Room #: 210-P [facility] IN [facility]#: [id number] Admission: 04/08/21 Attend Phys: Eric Quinones, Discharge: Date of : 32 Report #: [id number] LVOT Max V: 1.03 m/s JULIANA Vmax: 3.45 cm2 Mitral Valve E/A Ratio: 1.2 MV Decel. Time: 154.58 ms MV E Max Syed.: 0.92 m/s MV A Syed.: 0.75 m/s MV PHT: 44.83 ms IVRT: 79.58 ms Pulmonary Valve PV Peak Syed.: 0.89 m/s PV Peak Gr.: 3.14 mmHg Tricuspid Valve TR Peak Syed.: 2.60 m/s RAP Estimate: 10.00 mmHg TR Peak Gr.: 27.00 mmHg PA Pressure: 37.00 mmHg Left Ventricle The left ventricle is normal size. There is normal left ventricular wall thickness. Left ventricular systolic function is low normal. LVEF is 50%. Moderate diastolic dysfunction is present. Right Ventricle The right ventricle is normal size. The right ventricular systolic function is normal. Device lead is present in the right ventricle. Atria Left atrium is mildly dilated. The right atrium size is normal. Aortic Valve The aortic valve is not well visualized. No aortic regurgitation is present. There is no aortic valvular stenosis. Mitral Valve The mitral valve is normal in structure. Trace mitral regurgitation. No evidence of mitral valve stenosis. Tricuspid Valve The tricuspid valve is normal in structure. Trace tricuspid regurgitation. Estimated PAP is 37mmHg. Pulmonic Valve Pulmonic valve is not well visualized. 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 Ascending aorta is not well visualized. IVC is dilated and collapses <50% with inspiration. Pericardium There is no pericardial effusion. <Conclusion> The left ventricle is normal size. Left ventricular systolic function is low normal. LVEF is 50%. The right ventricle is normal size. Device lead is present in the right ventricle. Left atrium is mildly dilated. The aortic valve is not well visualized. The tricuspid valve is normal in structure. Trace tricuspid regurgitation. Estimated PAP is 37mmHg. Pulmonic valve is not well visualized. 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 There is no pericardial effusion. <ELECTRONICALLY SIGNED> By: Dash Balbuena MD 04/10/21 1403 02 140 Dash Balbuena MD /INF
[2021-04-10 15:30] VITALS: BP 104/59
--- NOTE | 2021-04-10 17:33 | EKG ---
[address] [address] ELECTROCARDIOGRAM REPORT Name: EDGAR CORRAL Room #: 210-P ADM IN M.R.#: [id number] Admission: 04/08/21 Attend Phys: Eric Quinones MD Discharge: Date of : 32 Report #: [id number] [facility] Test Date: 2021-04-10 Test Time: 10:19:07 Pat Name: EDGAR CORRAL Department: Room: 210 P Gender: M Anatomic Pathology Assistant: BRIANNA : 1930 Requested By: Kamryn Ramírez Order Number: [id number] MD: Tacho Laws Measurements Intervals [place] Rate: 154 P: 0 [place]: QRS: -58 QRSD: 165 T: 132 QT: 361 QTc: 578 Interpretive Statements Wide-complex tachycardia, probably ventricular tachycardia Compared to ECG 04/08/2021 10:53:29 No significant change was found Electronically Signed On 04-10-2021 17:33:37 CDT by Tacho Laws [email or web address] <ELECTRONICALLY SIGNED> By: Tacho Laws MD, [facility] 04/10/21 1733 1019 1019 Tacho Laws MD, FAC /EPI
--- NOTE | 2021-04-10 18:43 | NUR ---
1019- RN NOTIFIED THAT PT'S CARDIC MONITOR ALARMING V-TACH. RN RAN INTO PT ROOM AND PT WAS ASYMPTOMATIC AND TALKING. STATED NO SYMPTOMS AT ALL. 1021- NETWORK PROJECT MANAGER CARDIOLOGY NETWORK PROJECT MANAGER PAGED. NETWORK PROJECT MANAGER RETURNED CALLED AND WAS TOLD CARDIC MONITOR WAS ALARMING VTACH. PT IS STABLE AT THIS TIME RATE 140'S. KATELYN FIRST STATED SHE WANTED A STAT EKG AND A WAS GOING TO START AMIODARONE BOLUS AND GTT. KATELYN THEN CALLED BACK TO STATE HOLD AMIODARONE FOR NOW AND CALL HER WITH EKG RESULTS AND SHE WILL NOTIFY ROOF PANEL HANGER. EKG STATED EXTREME TACHCARDIA WITH WIDE COMPLEX. PT HAS HISTORY OF THIS. KATELYN STATED TO NOT GIVE AMIODARONE. DR. PERSAUD WAS ON UNIT DURING THIS TIME AND AGREED TO SEE PT. PT HAS PACEMAKER WITH AICD. DR. PERSAUD INTERROGATED DEVICE AND DID CAROTID MASSAGE ON R CAROTID AND PT INSTANTLY WENT FROM SVT RATE BACK TO 70'S THEN 60'S HR AND PACED. DR PERSAUD STATES PT NEEDS ABALATION AND HE WILL TALK WITH CARDIOLOGY TEAM. PT REMAINED REST OF SHIFT IN V-PACED RHYTHM WITH RATE OF 60.
[2021-04-10 19:02] VITALS: BP 116/55
[2021-04-11 03:25] VITALS: BP 122/61
[2021-04-11 04:56] LABS: HEMATOCRIT 33.4 % (42.0-52.0); HEMOGLOBIN 11.2 gm/dL (14.0-18.0); MCH 32.2 pg (26.0-34.0); MCHC 33.6 g/dL (28.0-37.0); MCV 95.7 fL (80.0-100.0); RBC 3.49 mil/uL (4.50-6.00); RDW 14.4 % (10.5-14.5); WBC 7.3 thou/uL (4.0-11.0)
[2021-04-11 05:14] LABS: CALCIUM 7.7 mg/dL (8.5-10.1); CREATININE 1.2 mg/dL (0.7-1.3); POTASSIUM 3.8 mmol/L (3.5-5.1)
--- NOTE | 2021-04-11 07:16 | NUR ---
OT EVAL AND TREAT ORDERS RECEIVED, DEFERED EVALUATION ON 04/10 DUE TO TACHYCARDIA, CHART REVIEW ON 04/11 REVEALS PLANS FOR POSSIBLE CARDIAC ABLATION TODAY. OT WILL DEFER TODAY PENDING PROCEDURE. WILL CHECK BACK TOMORROW.
--- NOTE | 2021-04-11 09:19 | NUR ---
ASSESSMENT: CM REVIEWED CHART AND ATTEMPTED TO MEET WITH PATIENT BUT HE IS OUT OF THE ROOM FOR ABLATION. CM CONTACTED PATIENTS SON KASHMIR THAT HE LIVES WITH. THEY LIVE IN A HOME WITH ABOUT 3 STEPS WITH HANDRAILS TO ENTER. ONCE INSIDE PT HAS NO STEPS HE HAS TO USE. PT IS NORMALLY FULLY INDEPENDENT WITH ADLS AND AMBULATION AND HAS NO DME AT HOME. PT HAS HAD [facility] IN THE PAST AND THEY WERE HAPPY WITH THEIR CARE. PATIENT HAS NOT BEEN TO A SNF IN THE PAST. SON STATES THEY WOULD PREFER TO USE [facility] AT DISCHARGE IF NEEDED. PT EVAL IS CURRENTLY PENDING PATIENT WAS TACHY YESTERDAY AND OUT FOR ABLATION THIS AM. CM WILL CONTINUE TO FOLLOW BUT PT WILL LIKELY NEED HH VS SNF. REFERRAL SENT TO [facility]. CM WILL CONTINUE TO FOLLOW.
[2021-04-11 14:57] VITALS: BP 111/61
--- NOTE | 2021-04-11 16:03 | NUR ---
BPCI letter and Preferred Provider List provided to patient, lives in home setting
[2021-04-11 20:15] VITALS: BP 120/61
[2021-04-12 00:15] VITALS: BP 118/61
--- NOTE | 2021-04-12 03:33 | NUR ---
bed alarm went off, he attempted to get out of bed. he was urgently trying to get ot the restroom. he awoke quickly and was temporarily confused. He had an incontinent urine output on the bedside table and into the bed covers. bladder scan done immediately after this episode. 161 ml urine in bladder. no straight cath done at this time. careplan reviewed. left and rioght groin intact dressings no bruising.
[2021-04-12 04:45] VITALS: BP 154/94
[2021-04-12 05:08] LABS: HEMATOCRIT 36.4 % (42.0-52.0); MCH 31.8 pg (26.0-34.0); MCV 96.2 fL (80.0-100.0); RBC 3.78 mil/uL (4.50-6.00); RDW 14.7 % (10.5-14.5); WBC 7.1 thou/uL (4.0-11.0)
[2021-04-12 05:54] LABS: CALCIUM 8.1 mg/dL (8.5-10.1); CREATININE 1.2 mg/dL (0.7-1.3); MAGNESIUM 2.1 mg/dL (1.8-2.4)
[2021-04-12 07:22] VITALS: BP 130/65
[2021-04-12 14:28] LABS: URINE BILIRUBIN NEGATIVE (Negative); URINE BLOOD 1+ (Negative); URINE CLARITY CLEAR; URINE COLOR YELLOW; URINE GLUCOSE-RANDOM* 2+ (Negative); URINE KETONES NEGATIVE (Negative); URINE LEUKOCYTES-REFLEX NEGATIVE (Negative); URINE NITRITE-REFLEX NEGATIVE (Negative); URINE PROTEIN (DIPSTICK) NEGATIVE (Negative); URINE UROBILINOGEN 0.2 E.U./dl (0.2-1.0)
[2021-04-12 14:48] LABS: CASTS None Seen /LPF (None Seen); SQUAMOUS None Seen /LPF (0-3); URINE WBC-REFLEX 0-5 Rare /HPF (0-5)
[2021-04-12 14:49] LABS: BACTERIA-REFLEX 1-9 Few /HPF (None Seen); CRYSTALS None Seen /LPF (None Seen); URINE RBC 3-10 Few /HPF (NONE SEEN)
--- NOTE | 2021-04-12 15:42 | NUR ---
[facility] acute rehab anticipates discharge to 5N in am. Updated patient he is in agreememt with plan.
[2021-04-12 15:46] VITALS: BP 138/72
[2021-04-12 15:55] VITALS: BP 138/72
[2021-04-12 19:37] VITALS: BP 133/52
--- NOTE | 2021-04-13 03:20 | NUR ---
ASSUMED CARE OF PT AT SHIFT CHANGE. PT IS AOX4 AND LETS NEEDS BE KNOWN. FALL PRECAUTION IN PLACE. PT DENIED PAIN, NAUSEA OR SOA. ASSESSMENT CHARTED. GROIN PUNCTURE SITES ARE INTACT AND SENIOR ACTUARIAL ANALYST. PT WAS ABLE TO GET COMFORTABLE AND SLEEP PART OF THE SHIFT. VSS AND NO S/S OF ACUTE DISTRESS. WILL CONTINUE TO MONITOR.
[2021-04-13 03:45] VITALS: BP 113/67
[2021-04-13 05:06] LABS: HEMATOCRIT 30.7 % (42.0-52.0); HEMOGLOBIN 10.4 gm/dL (14.0-18.0); MCH 32.6 pg (26.0-34.0); MCHC 33.9 g/dL (28.0-37.0); RBC 3.2 mil/uL (4.50-6.00); RDW 14.3 % (10.5-14.5); WBC 6.6 thou/uL (4.0-11.0)
[2021-04-13 05:23] LABS: CALCIUM 7.9 mg/dL (8.5-10.1); CREATININE 1.2 mg/dL (0.7-1.3); MAGNESIUM 1.9 mg/dL (1.8-2.4)
[2021-04-13 07:05] VITALS: BP 110/49
[2021-04-13 07:45] VITALS: BP 110/49
[2021-04-13 11:05] VITALS: BP 108/48
[2021-04-13 11:45] VITALS: BP 108/48
[2021-04-13] MEDS ORDERED: CARVEDILOL3.125 MG PO (12:22)
[2021-04-13] MEDS ORDERED: B-12500 MCG PO (12:24)
--- NOTE | 2021-04-13 14:13 | NUR ---
ON-GOING ASSESSMENT: CM REVIEWED CHART. PT HAS ORDERS TO DISCHARGE TODAY TO 5N. PT AND SON AGREEABLE WITH PLAN. PT WILL MOVE UP TP 5N THIS AFTERNOON. CASE CLOSED.
--- NOTE | 2021-04-13 15:57 | NUR ---
PT CARE ASSUMED AT 0700. ASSESSMENTS CHARTED. MEDICATIONS CHARTED. SILVNIO IV. AV PACED. STEFANO. HH DIET; ACHS. BROKEN LEFT FOREARM DURING SYNCOPAL EVENT AT HOME. NEAR SYNCOPAL EVENT ON 04/08/21. PT HAS AN AICD PACEMAKER. PT DISCHARGED TO N-REHAB, ROOM 512.
--- NOTE | 2021-04-14 11:33 | P ---
[facility] [place] [address] PROCEDURE REPORT Name: EDGAR CORRAL Room #: 210-P [facility] IN M.R.#: [id number] Admission: 04/08/21 Attend Phys: Eric Quinones MD Discharge: 04/13/21 Date of : 32 Report #: [id number] THIS REPORT FOR: cc: Mick Urena MD, Rene P. MD Couchonnal, Luis F. MD ~ DOC #: [id number] Guy Kwan MD DATE OF SERVICE: 04/11/2021 PREOPERATIVE DIAGNOSIS: Supraventricular tachycardia. POSTOPERATIVE DIAGNOSIS: Typical atrioventricular lesly reentry tachycardia. PROCEDURES PERFORMED: 1. SVT ablation -- CPT code 31741. 2. EP with left atrial pacing recording, CPT code 97298. 3. 3D mapping. CPT code 58635. 4. Pre-procedural ICD reprogramming. CPT code 87999. 5. Post-procedural ICD reprogramming. CPT code 18848. HISTORY: The patient is an 89-year-old male with history of ischemic cardiomyopathy, status post biventricular ICD, who recently has been having syncopal episodes. While in the hospital, he went into a wide complex tachycardia. I interrogated the device showing that he had a 1:1 tachycardia and I was able to terminate this with a carotid massage. He is here for SVT ablation. ANESTHESIA: The patient underwent MAC anesthesia with no anesthesia related complications. PROCEDURE: The patient underwent informed consent. We discussed the details of the procedure including the risks, which include but not limited to bleeding, vascular damage, stroke, [place] as well as cardiac perforation, and damage to the [place] conduction system requiring permanent pacemaker. He understood these risks and is willing to proceed. DESCRIPTION OF PROCEDURE: The patient was brought to the EP laboratory in fasting and sedated state and prepped and draped in a sterile fashion. I interrogated his [employer] biventricular ICD. I turned off his ICD therapies and I reprogrammed his device to the VVI 30 mode. Next, I obtained access to the right femoral vein x 3, placing a 8, 6 and 7-Zambian short sheath and in the left femoral vein, I placed a 6-Zambian short sheath using the modified Seldinger technique. Next, under fluoroscopy, 3 quadripolar catheters were placed at the HRA, His and RV positions and a decapolar catheter was placed in the coronary sinus. [facility] [address] [place] [address] PROCEDURE REPORT Name: EDGAR CORRAL Room #: 210-P [facility] IN M.R.#: [id number] Admission: 04/08/21 Attend Phys: Eric Quinones MD Discharge: 04/13/21 Date of : 32 Report #: [id number] At baseline, the patient was in sinus rhythm with a sinus cycle length of 735 milliseconds, MD interval 200 milliseconds, QRS duration 180 milliseconds, QT interval 380 milliseconds, AH interval 100 milliseconds and the HV interval of 58 milliseconds. Next, atrial pacing was performed and the patient easily went into SVT with a cycle length of 390 milliseconds and a septal VA time of 35 milliseconds. Ventricular entrainment was performed and there was a VAHV response consistent with AVNRT. I continued performing an EP study and AV lesly ERP was noted at 280 milliseconds at [address] cycle length. VA block was noted at 320 milliseconds. Ventricular ERP was noted at 240 milliseconds at a [address] cycle length. VA conduction was both midline and decremental. Any atrial pacing maneuvers would easily induced typical AV lesly reentrant tachycardia. As such, the patient was prepped for ablation. I placed an SR0 and 4 mm ablation catheter into the right atrium and a 3D geometry of the atrium was created with specific emphasis of His bundle region and slow pathway region. Ablation was performed at 50 perez and 55 degrees and I performed several ablation lesions with nice slow junctional beats. Post ablation testing was performed. Post-ablation AV block was now noted at 350 milliseconds. AV lesly ERP was noted at 350 milliseconds at a [address] cycle length. Atrial ERP was noted at 270 milliseconds at a [address] cycle length. Ventricular pacing was performed and VA block was at 340 milliseconds. Ventricular ERP was noted at 200 milliseconds at a [address] cycle length. Aggressive atrial and ventricular pacing maneuvers were performed and a CT could no longer be reinduced. Post-ablation, the patient was in sinus rhythm with sinus cycle length at 200 milliseconds, QRS duration 180 milliseconds with a left bundle branch block morphology. The QT interval 500 milliseconds, AH interval 106 milliseconds and HV interval of 58 milliseconds. As such, the procedure was concluded. Catheters and sheaths were pulled. Hemostasis was obtained. His ICD therapies were reenabled and I made some programming changes. I added a VT monitor zone from 150-180 beats per minute. His VT zone was remained at 180-220 beats per minute. VF zone remained at greater than 220 beats per minute. His device was tested and found to be functioning normally. CONCLUSION: 1. Successful ablation of typical AV lesly reentrant tachycardia. 2. Normal SA lesly function. 3. Normal AV lesly function. 4. Normal His-Purkinje function. 5. No other inducible arrhythmias. 6. Successful pre and post-procedural ICD reprogramming. [facility] [address] [place] [address] PROCEDURE REPORT Name: EDGAR CORRAL Room #: 210-P [facility] IN M.R.#: [id number] Admission: 04/08/21 Attend Phys: Eric Quinones MD Discharge: 04/13/21 Date of : 32 Report #: [id number] Guy Kwan MD LFC/FRANK <ELECTRONICALLY SIGNED> By: Guy Kwan MD 04/14/21 1133 0740 1114 Guy Kwan MD /nt
== END 2021-04-13 16:09 | DRG 273 ==
LOC: ER 10:10 → EROBS 14:22 → 2N 14:22
PROVIDERS: Emergency Medicine; Nurse Practitioner; Nurse Practitioner Acute Care; Nurse Practitioner Family; ADMIT Internal Medicine; ATTEND Internal Medicine
PROC: 4A0234Z Measurement of Cardiac Electrical Activity, Percutaneous Approach (ICD-10-PCS; principal; 2021-04-11)
PROC: 02583ZZ Destruction of Conduction Mechanism, Percutaneous Approach (ICD-10-PCS; principal; 2021-04-11)
PROC: 4A023FZ Measurement of Cardiac Rhythm, Percutaneous Approach (ICD-10-PCS; principal; 2021-04-11)
PROC: 02K83ZZ Map Conduction Mechanism, Percutaneous Approach (ICD-10-PCS; principal; 2021-04-11)
DX: I47.1 Supraventricular tachycardia (principal); N17.0 Acute kidney failure with tubular necrosis; I25.5 Ischemic cardiomyopathy; E86.9 Volume depletion, unspecified; Z20.822 Contact with and (suspected) exposure to COVID-19; I25.10 Atherosclerotic heart disease of native coronary artery without angina pectoris; E78.5 Hyperlipidemia, unspecified; F17.210 Nicotine dependence, cigarettes, uncomplicated; N18.9 Chronic kidney disease, unspecified; E87.5 Hyperkalemia; E11.22 Type 2 diabetes mellitus with diabetic chronic kidney disease; Z66 Do not resuscitate; R53.81 Other malaise; I12.9 Hypertensive chronic kidney disease with stage 1 through stage 4 chronic kidney disease, or unspecified chronic kidney disease; N40.1 Benign prostatic hyperplasia with lower urinary tract symptoms; R33.8 Other retention of urine; Z87.81 Personal history of (healed) traumatic fracture; Z88.0 Allergy status to penicillin; Z87.442 Personal history of urinary calculi
CPT/HCPCS: 10081; 62110; 62900; 70005

== ENCOUNTER 2021-04-13 11:29 | Inpatient (IN) | payer OTHER, BC ==
[~2021-04-13] VITALS: Ht 185.4 cm; Wt 86.8 kg
[~2021-04-13 11:29] MED LIST changes: +LOSARTAN POTASS50 MG PO
[2021-04-13] MEDS ORDERED: CARVEDILOL3.125 MG PO (12:22)
[2021-04-13] MEDS ORDERED: B-12500 MCG PO (12:24)
--- NOTE | 2021-04-13 14:14 | NUR ---
ASSESSMENT: CM REVIEWED CHART AND SPOKE WITH PT AND SON. PT LIVES IN A HOUSE WITH HIS SON KASHMIR. PT REPORTS THAT HE HAS ABOUT 3 STEPS TO ENTER THE HOME WITH A HANDRAIL AND NO STEPS HE HAS TO USE ONCE INSIDE. PT REPORTS THAT HE IS INDEPENDENT NORMALLY WITH ADLS AND AMBULATION AND HAS NO DME. PT REPORTS HAVING [facility] IN THE PAST AND WAS HAPPY WITH THEIR CARE. PT HAS NO HX OF BEING TO A SNF. CM DISCUSSED ROLE. PT IS HOPEFUL HE WILL BE ABLE TO RETURN HOME WITH HOME AND IS AGREEABLE TO HH IF NEEDED. PT ENJOYED [facility] BUT CM ON ACUTE CARE PROVIDED SON AND PT WITH BPCI LIST FOR HH PROVIDERS FOR THEM TO REVIEW. SON REPORTS HE THINKS THEIR FAMILY HAD NEPTALI AT HOME IN THE PAST AND MAY CONSIDER THAT. CM WILL CONTINUE TO FOLLOW TO ASSIST NEEDED AND WITH FURTHER RECOMMENDATIONS.
--- NOTE | 2021-04-13 16:00 | NUR ---
NEW ADMISSION FROM CCU CAME IN VIA WC WITH SON AND HOSP STAFF. ALERT AND ORIENTATED X 3. PAIN IS STABLE AT REST AND REPORTED PAIN IS TOLERABLE AT 5/10. NO ORDERS FOR TYLENOL ON ADMISSION. SPOKE TO ANA BAIN, ORDERED TYLENOL PRN AND VOLTAREN GEL. L ARM IS SOFT SPLINT. LIMITED MOBILITY, COMPLAINED OF TINGLING IN THE FINGERS. 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 NO SKIN ISSUES. L AICD/PPM INTACT. AGARWAL INSITU WITH YELLOW COLORED URINE, ADEQ OUTPUT. L UA PERIPHERAL LINE, SALINE LOCKED. LUNG CLEAR AND DIM AT THE BASES, CURRENT SMOKER, NO 02. ABDOMEN DISTENDED AND HYPOACTIVE, LAST REPORTED BM 04/11/21. DENIES ANY NAUSEA OR ABDOMINAL DISCOMFORT. HISTORY AND ASSESSMENT COMPLETED, PT COMPLIANT WITH POC, VSS. ON ACCUCHECKS, ON ORAL MEDS. ALL QUESTIONS AND CONCERNS ANSWERED, ROOM AND UNIT ORIENTATED GIVEN TO PT AND SON, BED ALARM ON AND CALL LIGHT WITHIN REACH.
[2021-04-13 19:30] VITALS: BP 119/61
--- NOTE | 2021-04-14 01:17 | NUR ---
PT WAS OBSERVED LYING ON HIS BED WATCHING TV AT SHIFT CHANGE.PT DENIED PAIN SO FAR.PT HAS A SOFT SPLINT TO HIS L ARM,NWB TO THE ARM.AGARWAL CATH TO DD.BG MONITORED NO COVERAGE GIVEN.PT ABLE TO MAKE HIS NEEDS KNOWN.CALL LIGHT WITHIN REACH.
[2021-04-14 05:21] LABS: HEMATOCRIT 32.5 % (42.0-52.0); HEMOGLOBIN 10.7 gm/dL (14.0-18.0); MCH 31.5 pg (26.0-34.0); MCV 95.6 fL (80.0-100.0); RBC 3.39 mil/uL (4.50-6.00); RDW 14.6 % (10.5-14.5); WBC 6.4 thou/uL (4.0-11.0)
[2021-04-14 05:48] LABS: CREATININE 1.1 mg/dL (0.7-1.3)
[2021-04-14 08:20] VITALS: BP 118/54
--- NOTE | 2021-04-14 10:53 | NUR ---
ASSUMED CARE AT 0700. SLEPT FAIRLY WELL. ALERT AND ORIENTATED X 3, [place]. PLESANT AND COOPERATIVE. LUE IN SOFT SPLINT. DENIES ANY PAIN, SOME TINGLING IN L HAND. AGARWAL INTACT AND DRAINING ADEQ. DENIES ANY PAIN FOR NOW. APPETITE GOOD, BLOOD SUGAR 82 ON ORAL MEDS. PARTICIPATES WITH THERAPY. DENIES ANY CHEST PAIN OR SHORT OF AIR WITH EXERTION. ON ROOM AIR. LAST BM ON 04/11, SENNA AND COLACE GIVEN, PASSING FLATUS, ABDOMEN DISTENDED AND HYPOACTIVE. NO COMPLAINS OF NAUSEA. WILL CONT TO MONTIOR.
--- NOTE | 2021-04-14 12:00 | NUR ---
In addition to more aggressive bowel regimen, needs folate replacement for level 3.9. Push/encourage adequate fluids with and between meals
[2021-04-14 19:40] VITALS: BP 112/63
--- NOTE | 2021-04-15 01:21 | NUR ---
BLOOD SUGAR 79 AT HS, GLYBURIDE HELD AND LATE TRAY INCLUDING TURKEY SANDWICH GIVEN. AGARWAL TO DD CONTINUES. EDEMA PRESENT, US LLE IN THE AFTERNOON PROVED TO BE NEGATIVE FOR THROMBUS. AGARWAL TO DD. PATIENT TAKING PILLS WHOLE WITH WATER.
--- NOTE | 2021-04-15 07:44 | NUR ---
ASSUMED CARE AT 0700. PATIENT IS ALERT AND ORIENTED X3. PATIENT JOEL'S, LEFT UPPER ARM DISTAL HUMEROUS FX, IN A SOFT SPLINT. PATIENT IS UP WITH ASSIST OF 1-2 STAFF AND GAIT BELT. S.L. IN HIS RIGHT UPPER ARM IS PATENT AND INTACT. LUNGS ARE CLEAR AND DEMINISHED. PATIENT HAS AGARWAL TO DD, DRAINING APRIL COLORED URINE. FALL AND SAFETY PROTOCOLS IN PLACE. DENIES PAIN AT THIS TIME. CONTINUES TO PROGRESS SLOWLY TOWARDS D/C GOALS. WILL CONTINUE TO MONITER.
[2021-04-15 08:00] VITALS: BP 110/74
[2021-04-15 19:38] VITALS: BP 90/36
--- NOTE | 2021-04-15 23:44 | NUR ---
PT ALERT AND ORIENTED X 4. AGARWAL PATENT DRAINING CLEAR YELLOW URINE. LEFT ARM IN SPLINT. FINGERS WARM, MOBILE, PINK. PT DENIES PAIN OR DISCOMFORT. BED ALARM ON FOR SAFETY. PT APPEARS TO BE SLEEPING ON HOURLY ROUNDS.
[2021-04-16 08:00] VITALS: BP 103/47
--- NOTE | 2021-04-16 10:58 | NUR ---
PT A&OX4. PT. DENIES PAIN. WATCHING TV. LUE SOFT SPLINT IS C/D/I, PULSE NORMAL TO LUE, FINGERS SLIGHTLY EDEMATUS, AGAIN DENIES PAIN. CALL LIGHT WITHIN REACH, BED IN LOW POSITION, WILL CONTINUE TO MONITOR.
--- NOTE | 2021-04-16 15:22 | NUR ---
CLEANED MEATUS AND CATHETER
[2021-04-16 19:15] VITALS: BP 105/53
--- NOTE | 2021-04-17 02:47 | NUR ---
ASSUMED CARE AT 1900 OF 04/16. A&OX4. DENIES PAIN OR DISCOMFORT. AGARWAL IN PLACE AND INCTACT, CLEAR YELLOW URIN DRAINING. LEFT ARM REMAINS IN SPLINT.+2 RADIAL PULSE PRESENT, BRISK CAP REFILL, LUE EDEMA PRESENT. RF MANAGER ARE EQUAL. PATIENT REFUSED TO HAVE LUE ELEVATED ON PILLOW. EDUCATION PROVIDED ABOUT BENEFITS OF EXTREMITY ELEVATION. CONTINUES TO BE NWB ON LUE. PATIENT ALSO REQUESTED FOR STOOL SOFTNERES, BOTH DOCUSATE AND SENNAKOT WERE ADMNISTERED AT HS. CALL LIGHT W/IN REACH. BED ALARM ON. NO CONCERNS AT THIS TIME, WILL CONTINUE TO MONITOR.
[2021-04-17 07:15] VITALS: BP 111/60
--- NOTE | 2021-04-17 07:20 | NUR ---
PT. IN BED UPON ARRIVAL TO ROOM A&OX4. DENIES PAIN REFUSES PILLOW TO LUE, EXPALINED THE BENEFITS OF REDUCED SWELLING, PT STILL REFUSES PILLOW. RLE ELVATED ON PILLOW. CALL LIGHT WITHIN REACH, BED IN LOW POSITION, WILL CONTNIUE TO MONITOR
--- NOTE | 2021-04-17 08:53 | NUR ---
REMOVED PERIPHERAL IV TO RUE, REMOVED PER PROTOCAL SITE ASYMPTOMATIC
--- NOTE | 2021-04-17 09:00 | NUR ---
PHYSICAL THERAPY NOTED BLISTER ON L LATERAL HEEL, PICTURE TAKEN, WOUND CARE NURSE NOTIFIED, CLENSED WITH ns. BETADINE APPLIED, PRAFO BOOTS ORDERED, BED SPINNING LATHE OPERATOR IN PLACE, PT. IS UP IN WC AT THIS TIME WITH BLE ELEVATED
--- NOTE | 2021-04-17 10:30 | NUR ---
WOUND CONSULT; THE RN TODAY NOTIFIED ME OF A RIGHT HEEL PRESSURE INJURY WICH IS BLISTERED WITH MILD ERYTHEMA. NO DRAINAGE. THE BLISTER IS INTACT. NO S/S OF INFECTION. THE LEFT ANTIERIOR FOOT WAS SUSPICIOUS TO THE RN TODAY AND SHE ASKED ME TO LOOK AT IT. THE AREA BLANCHES. I WILL REASSESS ON 04/19/21. RECCOMMENDATIONS;. -PAINT BLISTER WITH BETADINE, COVER WITH A BORDER FOAM, CHANGE DAILY. -GET A PRAFO BOOT FOR THE RIGHT HEEL. RN PRESENT.
[2021-04-17 20:00] VITALS: BP 124/68
--- NOTE | 2021-04-18 04:30 | NUR ---
ASSUMED CARE AT 1900 OF 04/17. A&OX4. DENIES PAIN OR DISCOMFORT. CONTINUES TO BE NWB TO LUE, SPINT IN PLACE. LEFT HAND IS EDEMATOUS, PILLOW IS USED TO ELEVATE THE LUE. LEFT RADIAL PULSE PRESENT AND BOUNDING. AGARWAL IN PLACE, CLEAR YELLOW URINE IS DRAINNING. BILATERAL HEEL PROTECTORS IN PLACE. PATIENT REFUSES TO BE TURNED TO HIS SIDE. WILL CONTINUE TO MONITOR.
[2021-04-18 07:30] VITALS: BP 123/59
--- NOTE | 2021-04-18 13:05 | NUR ---
team meeting, bpci. no driving. dressing max asssit, transfer part to mod assist, balance unsteady. poor insight. sever memory, assist with medication and finances. son works on farm. dc 04/26/21, son to work with therapy on saturday 04/21. apex to see pt here. hh pt ot nursing, .
--- NOTE | 2021-04-18 15:35 | NUR ---
ASSUMED PT CARE AROUND 0715. PT ALERT X ORIENTED X 4. ON ROOM AIR. HAS A SPLINT ON LF UPPER ARM, DANA WRAPPED AND NON- WEIGHT BEARING.USES CANE ON RT HAND.AGARWAL IN PLACE. TAKES PILL WHOLE WITH THIN LIQUID.RT HEEL BLISTER PRESENT. BOOTS ON BOTH FOOT. FALL PRECAUTION IN PLACE. WILL CONTINUE TO MONITOR.
[2021-04-18 19:25] VITALS: BP 103/56
--- NOTE | 2021-04-19 00:15 | NUR ---
PT ALERT AND ORIENTED X 4. AGARWAL PATENT DRAINING CLEAR YELLOW URINE. LEFT ARM SPLINT INTACT. LEFT FINGERS WARM, MOBILE, STRONG RADIAL PULSE. PT DENIES PAIN OR DISCOMFORT. BED ALARM ON FOR SAFETY. PT APPEARS TO BE SLEEPING ON HOURLY ROUNDS.
[2021-04-19 08:00] VITALS: BP 103/49
--- NOTE | 2021-04-19 08:38 | NUR ---
PATIENT A&OX4. PT. UP IN CHAIR EATING BREAKFAST. PT. REFUSES TO ELEVATE LUE. PT. STATES HE HAD A BM YESTERDAY. DENIES, PAIN, NAUSEA, REFUSED MIRALAX. CHAIR ALARM ON, CALL LIGHT WITHIN REACH, WILL CONTINUE TO MONITOR.
--- NOTE | 2021-04-19 11:35 | NUR ---
PATIENT RESTING IN BED QUIETLY WITH EYES CLOSED, BED ALARM ON, CALL LIGHT WITHIN REACH, SIDE RAILS UP X2. WILL CONTINUE TO MONITOR
--- NOTE | 2021-04-19 13:37 | NUR ---
CALLED DR PACHECO'S OFFICE AND S/W ANSWERING SERVICE. INQUIRING ABOUT WEIGHT BEARING STATUS TO BHAVNA. ANSWERING SERVICE STATED SHE'D PAGE DR. MACIAS WHO IS CYCLING INSTRUCTOR TODAY.
--- NOTE | 2021-04-19 15:37 | PLAN ---
[facility] [place] [address] REHAB UNIT PLAN OF CARE Name: EDGAR CORRAL Room #: 512-P ADM IN M.R.#: [id number] Admission: 04/13/21 Attend Phys: Tomas Jo MD Discharge: Date of : 34 Report #: [id number] THIS REPORT FOR: cc: Mick Urena MD, Rene P. MD Smithson,Tomas Huff MD ~ DOC #: [id number] Tomas Jo MD DATE OF SERVICE: 04/15/2021 PROGRESS NOTE/OVERALL PLAN OF CARE SUBJECTIVE: The patient is seen back earlier. He is in no distress. Temperature 37, pulse 95, respirations 20, blood pressure 110/74. He has the splint in place in left upper extremity. I discussed with occupational therapy yesterday regarding bagging it and protecting it so that it remains dry if he gets in the shower. He otherwise has been in good spirits and has been cooperative with therapists. There is a definite latency to some of his responses and he likely has probable superimposed encephalopathy. Neuropsychology will be involved in rehabilitation. Speech therapy is assisting as well. Functionally, he is noted to have moderate cognitive deficits along with severe memory deficits. In physical therapy, transfers are min assist with gait, min assist 150 feet with a standard cane. In occupational therapy, he is max assist for upper body dressing, max assist lower body dressing. ASSESSMENT: 1. Toxic metabolic encephalopathy. He has definite cognitive deficits. 2. Medical complexity with multifactorial gait instability. 3. Near syncopal events. 4. Supraventricular tachycardia, status post ablation, 04/11 5. Acute renal insufficiency, superimposed on chronic kidney disease. 6. Acute urinary retention, status post Serna. 7. Coronary artery disease with ischemic cardiomyopathy. 8. Diabetes mellitus type 2. 9. Left upper extremity distal humerus fracture, nonweightbearing. PLAN: The overall plan of care is based on the pre-admit screen and information garnered from therapy assessments. 1. Estimated length of stay probably at least 14 days. 2. Medical prognosis is reasonably good. 3. Anticipated interventions includes the interdisciplinary acute inpatient program. 4. Anticipated functional outcomes would be for the patient to become maximally independent with basic transfers and mobility issues as well as to improve as far as cognition. 5. Discharge destination would be back to the home setting[place] [address] REHAB UNIT PLAN OF CARE Name: EDGAR CORRAL Room #: 512-P [facility]#: [id number] Admission: 04/13/21 Attend Phys: Tomas Jo MD Discharge: Date of : 32 Report #: [id number] house with his son. 6. Expected therapy by discipline includes PT, OT and speech 1 hour per day each five days a week throughout the duration of the acute inpatient rehabilitation stay. The patient's prognosis for significant practical improvement within a reasonable period of time appears good. Given the patient's complex medical condition and risk of further medical complications, rehabilitation services could not be safely provided at a lower level of care such as a nursing home facility. Tomas Jo MD DGS/FRANK <ELECTRONICALLY SIGNED> By: Tomas Jo MD 04/19/21 1537 1531 09 Tomas Jo MD /nt
--- NOTE | 2021-04-19 18:03 | NUR ---
1400 [facility] CALLED ABOUT THE PATIENTS NWB STATUS OF HIS LEFT SHOULDER AND ARM. DR. HOWELL, HIS NURSE OR P.A. WILL COME TO ASSESS PATIENT LATER TODAY.
--- NOTE | 2021-04-19 18:09 | NUR ---
PER UROLOGY REMOVE CATHTER, BLADDER SCAN AFTER 4 HOURS, BLADDER SCAN RESULTED IN 285MLS. UROLOGY ORDER SI TO STRAIGHT CATH IF 350MLS AND ABOVE REPEAT BLADDER SCAN IN 6 HOURS, IF 350MLS OR GREATER STARIGH CATH AGIN IF PATIENT WILL ALLOW IF NOT REPLACE AGARWAL.
[2021-04-19 19:45] VITALS: BP 130/70
--- NOTE | 2021-04-19 20:32 | NUR ---
PATIENT VOIDED AROUND 1999 AND WAS BLADDER SCANNED FOR PVR, WHICH WAS 557cc. BLADDER WAS DISTENDED AT PALPATION, PATIENT DENIED ANY PAIN OR DISCOMFORT. PATIENT CONSENTED TO BEING STRAIGHT CATHED. OUTPUT WAS 625cc, YELLOW CLEAR URINE NOTED, PATIENT TOLERATED CATHETERIZATION WELL. WILL CONTINUE TO MONITOR.
--- NOTE | 2021-04-20 02:26 | NUR ---
ASSUMED CARE AT 1900 OF 04/19. A&OX4. ASSIST OF 1 WITH GAITBELT AND CANE FOR TRANSFERS AND AMBULATION. PATIENT IS ON VOIDING TRIAL, AND HAS BEEN ABLE TO VOID TWICE, VOLUME 50cc AND 25cc. DENIES PAIN OR DISCOMFORT. LUE CONTINUES TO BE NWB, AND REMAINS IN SPLINT. RADIAL PULSE PRESENT AND BOUNDING, L HAND IS SLIGTHLY EDEMATOUS, COLOR PRESENT, BRISK CAP REFILL PRESENT, MOVEMENT PRESENT. WILL CONTINUE TO MONITOR.
[2021-04-20 05:31] LABS: ABSOLUTE NEUTROPHILS 4.2 thou/uL (1.4-8.2); BASOPHILS 0.9 % (0.0-2.0); EOSINOPHILS 5.6 % (0.0-3.0); HEMATOCRIT 31.7 % (42.0-52.0); HEMOGLOBIN 10.6 gm/dL (14.0-18.0); LYMPHOCYTES 16.6 % (24.0-44.0); MCH 31.6 pg (26.0-34.0); MCHC 33.4 g/dL (28.0-37.0); MCV 94.5 fL (80.0-100.0); MONOCYTES 9.3 % (1.0-8.0); PLATELET COUNT 167 thou/uL (150-400); POLYS 67.6 % (36.0-66.0); RBC 3.35 mil/uL (4.50-6.00); RDW 14.1 % (10.5-14.5); WBC 6.2 thou/uL (4.0-11.0)
[2021-04-20 05:44] LABS: CALCIUM 7.9 mg/dL (8.5-10.1); CREATININE 1.1 mg/dL (0.7-1.3); POTASSIUM 4.2 mmol/L (3.5-5.1)
[2021-04-20 08:00] VITALS: BP 99/62
--- NOTE | 2021-04-20 10:53 | HC ---
[facility] [place] [address] CONSULTATION Name: EDGAR CORRAL Room #: 512-P [facility] IN M.R.#: [id number] Admission: 04/13/21 Attend Phys: Tomas Jo MD Discharge: Date of : 32 Report #: [id number] THIS REPORT FOR: cc: Mick Urena MD, Rene P. MD Althoff, Jeffrey R. MD ~ DOC #: [id number] Jamil Romeo MD DATE OF SERVICE: 04/17/2021 Please note that today's date is not the same as his date of service which is 04/17/2021. CHIEF COMPLAINT: Heel ulceration. HISTORY OF PRESENT ILLNESS: This is an 89-year-old male patient who was admitted with a near syncopal episode. He is being evaluated by cardiology and was noted to have ulceration to his right heel. I have been asked to see him with regard to wound care. The patient normally lives in a house with his son. He denies other specific complaints at this time. PAST MEDICAL HISTORY: Positive for history of SVT status post ablation, acute kidney injury, urinary retention, coronary artery disease with ischemic cardiomyopathy, ejection fraction 50%, type 2 diabetes mellitus, hyperlipidemia. SOCIAL HISTORY: Positive for smoking cigarettes. He has a 65-mvib-epew history. No alcohol use. FAMILY HISTORY: Noncontributory. MEDICATIONS: Include carvedilol, cyanocobalamin, nitroglycerin p.r.n., aspirin, Plavix, Flomax, Glucophage, Zocor, Glucotrol, and losartan. ALLERGIES: PENICILLIN. FAMILY HISTORY: Noncontributory. REVIEW OF SYSTEMS: CONSTITUTIONAL: Denies fever, chills, weight loss. NEUROLOGIC: Denies focal weakness, numbness or tingling. EYES: The patient denies visual changes, but has drainage. ENT: The patient denies earache, nasal drainage or no sore throat. CARDIOVASCULAR: Patient denies chest pain, palpitation, diaphoresis. PULMONARY: The patient denies cough or shortness of breath. GASTROINTESTINAL: Patient denies nausea, vomiting, diarrhea, abdominal pain. ORTHOPEDIC: The patient has ulceration on his right heel. [facility] [address] [place] [address] CONSULTATION Name: EDGAR CORRAL Room #: 512-P [facility] IN ..#: [id number] Admission: 04/13/21 Attend Phys: Tomas Jo MD Discharge: Date of : 32 Report #: [id number] Others systems and a 14-point review of systems are negative. PHYSICAL EXAMINATION: VITAL SIGNS: At this time include temperature 36.7, pulse 62, respirations 19, blood pressure 111/53. GENERAL: This is a chronically ill-appearing male. The patient appears to be in no acute distress. HEENT: Head normocephalic. Nose and throat are clear. NECK: Supple. LUNGS: Clear. HEART: Irregular without murmur. ABDOMEN: Soft. Bowel sounds present. EXTREMITIES: Examination of the lower extremities demonstrate diminished distal pulses. He has a blister with a surrounding deep tissue injury to the right posterior heel. It is minimally tender at this time. LABORATORY DATA: Sodium 145, potassium 4.0, chloride 115, CO2 of 18, BUN 9, creatinine 1.1, glucose 74. White blood cell count 6.1 with a hemoglobin of 10.7. CLINICAL IMPRESSION: 1. Stage II pressure ulceration to the right heel with surrounding deep tissue injury. 2. Diabetes mellitus. 3. Hypertension. 4. History of supraventricular tachycardia. 5. Ischemic cardiomyopathy. RECOMMENDATION: At this point in time, recommend topical Betadine paint to the area. No debridement was performed at this time as the skin is currently closed. He will need a PRAFO boot for pressure prophylaxis while in bed. We will continue to follow him closely in the hospital. I appreciate being asked to see him in consultation. Jamil Romeo MD JRA/MUK <ELECTRONICALLY SIGNED> By: Jamil Romeo MD 04/20/21 1053 [id number] [id number] Jamil Romeo MD /laron
--- NOTE | 2021-04-20 13:22 | HC ---
[facility] [place] [address] CONSULTATION Name: EDGAR CORRAL Room #: 512-P [facility] IN M.R.#: [id number] Admission: 04/13/21 Attend Phys: Tomas Jo MD Discharge: Date of : 32 Report #: [id number] THIS REPORT FOR: cc: Mick Urena MD, Rene P. MD Deutch,Danial Bhatt. PhD ~ DOC #: [id number] Danial Calderon, PhD DATE OF SERVICE: 04/16/2021 NEUROBEHAVIORAL STATUS EXAM ATTENDING PHYSICIAN: Tomas Jo M.D. HEALTHCARE FACILITY ADMINISTRATOR: Danial Calderon, PhD. CLINICAL PRESENTATION: The patient is an 89-year-old male admitted to the hospital after a near syncopal episode at home. The patient was found to be hypotensive. His diagnostic assessment on admission to the rehabilitation unit was medical complexity with multifactorial gait instability, possible acute encephalopathy versus a chronic process, near syncopal events, SVT status post day post-ablation on 04/11/2021, QIAN on CKD, acute urinary retention, status post Serna, CAD, type 2 diabetes mellitus, hyperlipidemia and left LUE distal humerus fracture. A complete description of his medical condition and history can be found in his medical record. Neuropsychological consultation was requested to provide assistance in the assessment of cognitive and emotional status and provide recommendations and services. Prior to this most recent admission, he was living at home with his son. The patient has been a gonzalez. He was driving, but his son was managing medications. He had episodes of blacking out requiring son's assistance. He had been more sedentary in the home. TECHNIQUES UTILIZED: Clinical interview, review of medical records, staff consultation and behavioral observation, mini-mental status exam 2 standard version and clock drawing and verbal fluency assessment. EXAMINATION FINDINGS: The patient was alert and cooperative with the assessment. There is no evidence of aphasia. His thoughts are logical and goal oriented. There is no evidence of thought disorder. He reports symptoms to include decreased appetite, taking more effort to complete tasksl anxiety and depression. There is no reported difficulty with sleep, memory or word finding. His performance on the MMSE 2 brief version was in the impaired range with a raw score of 12/16. He is 3/3 for initial registration, 4/5 for orientation to [address] [address] CONSULTATION Name: EDGAR CORRAL Room #: 512-P [facility] IN M.R.#: [id number] Admission: 04/13/21 Attend Phys: Tomas Jo MD Discharge: Date of : 32 Report #: [id number] time, 5/[address], and 0/3 for immediate recall of 3 items after a brief time delay and distraction. Performance on the MMSE 2 standard version was in the severe range of impairment with a raw score of 21/30. He had difficulty with copying a simple geometric design and writing a sentence. The patient was 2/5 for serial sevens, 2/2 for naming. Repetition comprehension and reading were within normal limits. Clock drawing was in the impaired range. He was unable to accurately place the numbers within the clock or set the hands at a designated time. Letter fluency was in the average range with a T-score of 52 percentile, rank of 58. Category fluency was in the low average range with a T score of 40. Overall, total fluency was average with a T-score of 46 percentile, rank of 34. The patient is presenting with deficits in neurocognitive functioning primarily in immediate recall, sustained concentration and visual spatial construction. Verbal fluency is better maintained but with evidence of perseveration and relative weakness in category fluency DIAGNOSTIC IMPRESSION: Major neurocognitive disorder (dementia), unspecified with decreased insight -- extent to be determined, likely in the mild to moderate range. Unspecified depressive disorder. RECOMMENDATIONS: The patient should discontinue driving and will require assistance in the management of medication and finances. Treatment program for neurocognitive disorder will likely be necessary. He may benefit from a more thorough neuropsychological evaluation to clarify cognitive status. At this time, help will be necessary to maintain safety. Thank you very much for allowing me to provide the consultation on this patient. Danial Calderon, PhD DAVID/GENA <ELECTRONICALLY SIGNED> By: Danial Calderon, PhD 04/20/21 1322 [id number] Danial Calderon, PhD /nt
[2021-04-20 19:23] VITALS: BP 108/55
--- NOTE | 2021-04-20 20:29 | NUR ---
Assumed care on 04/20/21 @ 19:30, Alert and Oriented x4. Assist x1 with gait belt for transfers and to ambulate. Serna cath draining red urine to gravity. Denies pain, Call light within reach, bed in low position.
[2021-04-21 07:15] VITALS: BP 97/56
--- NOTE | 2021-04-21 13:48 | NUR ---
CM SPOKE WITH SON VIA PHONE CALL, WANTS TO FOUND SKILLED REHAB FOR HIM, CM WENT OVER [facility] SNF LIST " OK TO SEND TO [facility] OF [facility]"/SON. CM SENT REFERRAL AND [facility] COVER PAGE.
--- NOTE | 2021-04-21 14:00 | NUR ---
ASSUMED CARE AT 0700. ALERT AND ORIENTATED X 3. DENIES ANY PAIN, REPORTED DISCOMFORT WITH MOVING AND DOES NOT NEED ANYTHING FOR PAIN. NOTED HIS AGARWAL WAS REPLACED AND HAS HEMATURIA WITH NO CLOTS NOTED. AGARWAL FLUSHED WITH 50ML NS WITH NO RESISTANCE. KAVITHA AND ANA GRAPHITE GRINDER AWARE OF HEMATURIA AND ORDERS TO CONT WITH ASA AND PLAVIX AND WILL F/UP WITH LABS TOMORROW. DR MCBRIDE SAW PT TODAY, OK TO REMOVE THE SOFT SPLINT AND BANDAGE FOR SKIN CARE NEEDED, CONT WITH NWB STATUS AND TO FOLLOW UP WITH ORTHO 2 WEEKS POST DC. PT ABLE TO MOVE FINGERS WITH RADIAL PULSE PALPABLE. R HEEL WOUND CARE DONE, PT PUT ON HEEL PROTECTOR BOOTS WHILE IN BED.
[2021-04-21 20:13] VITALS: BP 120/58
--- NOTE | 2021-04-22 02:27 | NUR ---
assumed care approx 04/21. pt alert and oriented x4, appropriate and cooperative. pt c/o pressure and feeling fullness and needing to void. catheter in place with dark colored urine to bag with small amt. bladder scanned pt and showed >550ml. irrigated catheter with sterile water and difficult to irrigate and pt in pain. VEHICLE ASSEMBLY INSPECTOR and physician paged and orders recd for 3way catheter and irrigate and CBI until clear. packing house supervisor notified and TURP cart obtained. 22french catheter inserted by printing and stamping supervisor and CBI infusing at present. pt denied further complaints of pressure and marquis draining light red urine to bag. pt sleeping soundly. normal saline bags infusing at present. pt tolerating well. will continue to monitor.
[2021-04-22 05:38] LABS: ABSOLUTE NEUTROPHILS 8.5 thou/uL (1.4-8.2); BASOPHILS 0.6 % (0.0-2.0); HEMATOCRIT 31.9 % (42.0-52.0); HEMOGLOBIN 10.9 gm/dL (14.0-18.0); LYMPHOCYTES 8.4 % (24.0-44.0); MCH 32.3 pg (26.0-34.0); MCHC 34.2 g/dL (28.0-37.0); MCV 94.3 fL (80.0-100.0); MONOCYTES 6.5 % (1.0-8.0); PLATELET COUNT 175 thou/uL (150-400); POLYS 81.5 % (36.0-66.0); RBC 3.39 mil/uL (4.50-6.00); RDW 14.1 % (10.5-14.5); WBC 10.4 thou/uL (4.0-11.0)
[2021-04-22 05:48] LABS: CALCIUM 7.8 mg/dL (8.5-10.1); CREATININE 1.3 mg/dL (0.7-1.3); MAGNESIUM 2.1 mg/dL (1.8-2.4); POTASSIUM 4.3 mmol/L (3.5-5.1)
[2021-04-22 08:00] VITALS: BP 113/48
--- NOTE | 2021-04-22 08:59 | NUR ---
ASSUMED CARE AT 0700. PATIENT IS ALERT AND ORIENTEDX4. PATIENT JOEL'S, CREW ATTENDANT STRONGER ON RIGHT THEN THE LEFT. PATIENT HAS SOFT SPLINT TO HIS LEFT ARM. LUNGS ARE CLEAR. ABD IS SOFT WITH BSX4. UP WITH CANE WITH P.T. PATIENT HAS [address]. URINE IS STILL PINK TINGED. BLADDER CONTINUES TO BE IRRIGATED WITH N.S. UP IN THE BED FOR BREAKFAST. FALL AND SAFETY PROTOCOLS IN PLACE. NO C/O PAIN AT THIS TIME. PATIENT CONTINUES TO PROGRESS SLOWLY TOWARDS D/C GOALS. WILL CONTINUE TO MONITER.
[2021-04-22 21:47] VITALS: BP 128/65
--- NOTE | 2021-04-23 03:51 | NUR ---
assumed care approx 1900 evening 04/22. pt awake yet dozing off and on at change of shift. pt stated he had a fairly good day but was tired. CBI in progress draining pink/orange colored urine to bag. pt approx 0320 vomited light yellow/greenish phlegm. temp 101.1, po tylenol given and pt vomited shortly afterwards however no evidence of tylenol pills in basin. pt with loose cough, congestion, runny nose.CHAIR INSTALLER paged and orders recd for suppository Tylenol and guafinesin. pt sitting up now resting, call light in reach. will continue to monitor.
[2021-04-23 08:00] VITALS: BP 99/62
--- NOTE | 2021-04-23 10:00 | NUR ---
ASSUMED CARE AT 0700. SLEPT FAIR LAST NIGHT. ALERT AND ORIENTATED X 3. SEEMS TIRED TODAY, MORE ALERT THE DAY PROGRESSED. CBI IN PROGRESS AND NOTED THE URINE OUTPUT IS CLEARER WITH NO CLOTS OR BLOOD NOTED. PT DENIES ANY BLADDER SPASM OR DISCOMFORT. PAGED DR MENDOZA (UROLOGIST) AND TO CONT WITH CBI FOR ANOTHER 24 HOURS AND IF CONT TO REMAIN CLEAR OK TO DISCONTINUE IT TOMORROW. L ARM IN SOFT SPLINT, MANAGER BODY IS GOOD, DENIES ANY PAIN, ABLE TO MOVE FINGERS, RADIAL PULSE PALPABLE. WOUND CARE DONE TO R HEEL. PROTECTOR BOOTS IN PLACE WHILE IN BED.
[2021-04-23 15:14] LABS: ABSOLUTE NEUTROPHILS 14.3 thou/uL (1.4-8.2); BASOPHILS 0.2 % (0.0-2.0); HEMATOCRIT 36.6 % (42.0-52.0); HEMOGLOBIN 12.2 gm/dL (14.0-18.0); MCH 31.2 pg (26.0-34.0); MCHC 33.3 g/dL (28.0-37.0); MCV 93.8 fL (80.0-100.0); MONOCYTES 6.4 % (1.0-8.0); PLATELET COUNT 200 thou/uL (150-400); POLYS 91.4 % (36.0-66.0); RDW 14.1 % (10.5-14.5); WBC 15.6 thou/uL (4.0-11.0)
[2021-04-23 15:25] LABS: CALCIUM 8.3 mg/dL (8.5-10.1); CREATININE 1.6 mg/dL (0.7-1.3); POTASSIUM 4.7 mmol/L (3.5-5.1)
[2021-04-23 19:36] VITALS: BP 93/39
--- NOTE | 2021-04-23 21:22 | NUR ---
ASSUMED CARE AT 1900. PATIENT IS A&OX4. DENIES PAIN OR DISCOMFORT. REPORTS FEELING BETTER COMPARED TO EARLIER IN THE DAY. EXHIBITING LOW GRADE FEVER OF 99.2F AND BP 93/39, HR 74. NO S/S OF HYPOTENSION NOTED. DENIES DIZZINESS, NAUSEA OR BLURRED VISION. TEMP WAS 98.3F 1HOUR POST ADMNISTRATION OF TYLENOL PO. PATIENT IS RESTING AND INTERMITENTLY SLEEPING. CONTINUOUS IV FLUIDS RUNNING AT 75ML/HR, IV SITE HAS NO S/S OF PHLEBITIS OR INFILTRATION. CBI CURRETLY RUNNING, PATIENT DENIES BLADDER PAIN OR BLADDER SPASMS, CLEAR YELLOW URINE W/ ORANGE TINT DRAINING INTO DRAINAGE BAG. NO CLOTS NOTED IN DRAINAGE BAG. WILL CONTINUE TO MONITOR.
[2021-04-24] VITALS: BP 96/49
[2021-04-24 06:08] VITALS: BP 99/55
[2021-04-24 07:15] VITALS: BP 100/47
--- NOTE | 2021-04-24 09:00 | NUR ---
THIS AM KAVITHA MANAGER PULMONARY SAID THAT URINE IS CLEAR FROM BLOOD AND CAN STOP CONT. BLADDER IRRIGATION. PT WORKING WITH THERAPY AT THIS TIME. PT URINE IS STRAW COLOR. PT SITTING ON SIDE OF BED. PT GETTING READY FOR SPEECH THERAPY. PLUGGED THE EXTRA AGARWAL CATHETER TO STOP BLADDER IRRIGATION, WILL CONT TO MONITOR.
--- NOTE | 2021-04-24 10:17 | NUR ---
TEXTED KAVITHA BAIN ABOUT POS. BLOOD CULTURES X2. CALLED DR. NEVAREZ INFEC AND LEFT MESSAGE WITH SERVICE.
--- NOTE | 2021-04-24 13:59 | NUR ---
PT DIDN'T WANT TO EAT LUNCH. PT STATED HE WASN'T VERY HUNGRY, PT STATED HE USUALLY EATS FRUIT. DR. PRIETO HERE TO SEE HIM FOR INFECTION.
[2021-04-24 17:07] LABS: URINE BILIRUBIN 1+ (Negative); URINE BLOOD 3+ (Negative); URINE GLUCOSE-RANDOM* TRACE (Negative); URINE KETONES TRACE (Negative); URINE PROTEIN (DIPSTICK) 3+ (Negative)
[2021-04-24 17:11] LABS: ICTOTEST (BILI CONFIRMATORY) Negative (Negative); URINE LEUKOCYTES-REFLEX 3+ (Negative)
[2021-04-24 17:13] LABS: SQUAMOUS None Seen /LPF (0-3)
[2021-04-24 17:14] LABS: URINE RBC 3-10 Few /HPF (NONE SEEN); URINE WBC-REFLEX >25 Many /HPF (0-5)
[2021-04-24 17:15] LABS: BACTERIA-REFLEX 1-9 Few /HPF (None Seen); CRYSTALS None Seen /LPF (None Seen); URINE CLARITY CLOUDY; URINE COLOR ORANGE
--- NOTE | 2021-04-24 18:03 | NUR ---
PT HASN'T ATE VERY WELL TODAY. PT DIDN'T WANT TO EAT FULL DINNER. PT DID EAT JELLO X2 AND FRUIT. PT HAS DRANK PLENTY OF WATER TODAY. PT LEFT HAND SWOLLEN, PULSE 1-2+ ON RADIAL, ELEVATED LEFT HAND UP ON X2 PILLOWS. PT UP TO W/C X1 ASSIST AND ABLE TO BEAR WT TO FEET BILATERALY. CHANGED DRESSING TO RT HEEL TODAY. NO OPEN AREA SEEN, LOOKS LIKE A BLISTER. APPLIED SCD AND HEEL PROTECTORS ON WHILE IN BED.
--- NOTE | 2021-04-24 19:36 | NUR ---
GAVE PT APPLE JUICE TO DRINK, PT DRANK ONE AND OK, THE SECOND BOX PT STARTED COUGHING, RAISED HEAD OF BED UP MORE AND ENCOURAGED PT TO SPIT UP PHELEM. ALSO ENCOURAGED PT TO USE IS. PT USING THE IS FAST TAKING SMALL BREATHS. PT ENCOURAGED TO SLOW DOWN AND TAKE DEEP BREATHS.
[2021-04-24 19:47] VITALS: BP 116/49
--- NOTE | 2021-04-25 01:50 | NUR ---
ASSUMED CARE AT 1900 OF 04/24. PATIENT WAS A&OX4. DENIED DISCOMFORT OR PAIN. HS MEDICATIONS AND IV ABX SUCCESSFULLY ADMINISTERED. AT 0100 PATIENT REPORTED DISCOMFORT AND INABILITY TO FALL ASLEEP, RR 24, O2Sat 90% ON RA, TEMP 100.0F, PRODUCTIVE COUGH W/ CLEAR STRINGY SPUTUM PRESENT, NAUSEA/VOMITING PRESENT. PRN TYLENOL PO ADMINISTERED, PRN GUAFENISSIN PO ADMINISTERED, PRN COMPAZINE SUPPOSITORY ADMINISTERED. PRN BREATHING TREATMENT REQUESTED TO ADRESS TACHYPNEA. WILL CONTINUE TO MONITOR.
[2021-04-25 04:49] LABS: ABSOLUTE NEUTROPHILS 8.7 thou/uL (1.4-8.2); BASOPHILS 0.1 % (0.0-2.0); EOSINOPHILS 0.5 % (0.0-3.0); HEMATOCRIT 29.2 % (42.0-52.0); LYMPHOCYTES 3.1 % (24.0-44.0); MCH 31.8 pg (26.0-34.0); MCHC 33.8 g/dL (28.0-37.0); MCV 94.2 fL (80.0-100.0); MONOCYTES 6.1 % (1.0-8.0); PLATELET COUNT 176 thou/uL (150-400); POLYS 90.2 % (36.0-66.0); RBC 3.09 mil/uL (4.50-6.00); RDW 14.2 % (10.5-14.5); WBC 9.6 thou/uL (4.0-11.0)
[2021-04-25 04:51] LABS: HEMOGLOBIN 9.8 gm/dL (14.0-18.0)
[2021-04-25 05:03] LABS: CALCIUM 7.7 mg/dL (8.5-10.1); CREATININE 1.4 mg/dL (0.7-1.3); MAGNESIUM 1.9 mg/dL (1.8-2.4); POTASSIUM 4.2 mmol/L (3.5-5.1)
[2021-04-25 08:00] VITALS: BP 86/47
[2021-04-25 08:30] VITALS: BP 105/66
--- NOTE | 2021-04-25 13:16 | NUR ---
team meeting, dc 04/26 [facility]. can go by wheel van to facility. will need covid rapid test. chart copy requested.
--- NOTE | 2021-04-25 17:53 | NUR ---
ASSUMED PATIENT CARE AT 0700. A/O X3. ASSISTED PATIENT WALK WITH GAIT CHAN. URINE PINK. DENIES PAIN. LEFT HAND EDEMA. COVID NEGATIVE. MAY DC TO SNF TOMORROW.
[2021-04-25 19:12] VITALS: BP 81/46
--- NOTE | 2021-04-26 04:51 | NUR ---
assumed care approx 1900 evening 04/25. pt lying in bed with head of bed elevated. pt pleasant and cooperative. marquis to dd with orange colored urine to bag. pt took hs meds with applesauce tolerating well. IVF infusing to right forearm. pt appears to be sleeping soundly. bed alarm on and call light in reach. will continue to monitor.
[2021-04-26 08:00] VITALS: BP 115/58
[2021-04-26 09:12] VITALS: BP 115/58
[2021-04-26] MEDS ORDERED: MIRALAX17 GM PO (10:10)
[2021-04-26] MEDS ORDERED: ACETAMINOPHEN650 MG RECTAL (10:11)
--- NOTE | 2021-04-26 10:35 | NUR ---
ASSUMED CARE OF PT AT 0700. PT A&OX4. PT HAS SOFT SPLINT TO LUE, TRANSPORT ENGINEER TO LUE SLIGHTLY LESS THAN RUE TRANSPORT ENGINEER. BL RADIAL PULSES 2+ NORMAL. PT VOIDS PER URINARY CATHTER. EDEMA PRESENT TO L HAND. PT ABLE TO FEED SELF. USES CALL LIGHT APPROPRIATELY. BED ALARM, CHAIR ALARM ACTIVATED. PT WORKS WILLINGLY WITH THERAPIES. PT TO DC TO [facility] TODAY. WILL CONTNIUE TO MONITOR.
--- NOTE | 2021-04-26 11:00 | NUR ---
chart review. delivered by icu us to bedside nurse. [id number] completed and negative covid faxed to [facility]. cm notified by bedside nurse that have to found out from ID has to say what IV meds he will need to cont. cm updated ignsofie sykes that don't have completed dc orders yet.
--- NOTE | 2021-04-26 11:47 | NUR ---
PER DR. PRIETO DO NOT DISCHARGE UNTIL SENSITIVITY IS BACK.
[2021-04-26] MEDS ORDERED: CIPROFLOXACIN500 M1 PO (12:20)
[2021-04-26 15:09] LABS: CALCIUM 7.7 mg/dL (8.5-10.1); CREATININE 1.5 mg/dL (0.7-1.3); POTASSIUM 3.7 mmol/L (3.5-5.1)
--- NOTE | 2021-04-26 16:36 | NUR ---
REPORT CALLED TO JAIME MARQUIS. TRANSPORTATION HERE. PT WAS ABLE TO TRANSFER FROM BED TO WHEELCHAIR WITH MIN ASSIST. LEG BAG DRAINED 400CC YELLOW COLORED URINE. SON AND TRANSPORTAION LEFT UNIT WITH PT. IN GOOD CONDITION. PT LEFT WITH ALL OF HIS BELONGINGS AND HIS TRANSFER PAPERWORK.
--- NOTE | 2021-04-27 07:12 | EKG ---
[address] [place] [address] ELECTROCARDIOGRAM REPORT Name: EDGAR CORRAL Room #: 512-P [facility] IN M.R.#: [id number] Admission: 04/13/21 Attend Phys: Tomas Jo MD Discharge: 04/26/21 Date of : 32 Report #: [id number] [facility] Test Date: 2021-04-26 Test Time: 15:15:12 Pat Name: EDGAR CORRAL Department: Room: 512 Gender: M Nutritional Assistant: sari : [id number] Requested By: Geoffrey Harrison Order Number: [id number] : Heber Jain Measurements Intervals [place] Rate: 60 P: AR: 476 QRS: 133 QRSD: 159 T: 80 QT: 568 QTc: 568 Interpretive Statements Atrial-paced complexes No further analysis attempted due to paced rhythm Compared to ECG 04/10/2021 10:19:07 Ventricular tachycardia no longer present Electronically Signed On 04-27-2021 7:12:29 CDT by Heber Jain [email or web address] <ELECTRONICALLY SIGNED> By: Heber Jain MD, [facility] 04/27/2112 1515 1515 Heber Jain MD, FAC /EPI
== END 2021-04-26 16:40 | DRG 92 ==
PROVIDERS: Hospitalist; Nurse Practitioner; Nurse Practitioner Family; Specialist; ADMIT Physical Medicine & Rehabilitation; ATTEND Physical Medicine & Rehabilitation
DX: G92 Toxic encephalopathy (principal); N17.9 Acute kidney failure, unspecified; I47.1 Supraventricular tachycardia; E44.1 Mild protein-calorie malnutrition; S37.30XA Unspecified injury of urethra, initial encounter; N39.0 Urinary tract infection, site not specified; R53.81 Other malaise; I25.5 Ischemic cardiomyopathy; E11.22 Type 2 diabetes mellitus with diabetic chronic kidney disease; N18.9 Chronic kidney disease, unspecified; E78.5 Hyperlipidemia, unspecified; Z20.822 Contact with and (suspected) exposure to COVID-19; I25.10 Atherosclerotic heart disease of native coronary artery without angina pectoris; F01.50 Vascular dementia, unspecified severity, without behavioral disturbance, psychotic disturbance, mood disturbance, and anxiety; F32.9 Major depressive disorder, single episode, unspecified; F17.210 Nicotine dependence, cigarettes, uncomplicated; N40.1 Benign prostatic hyperplasia with lower urinary tract symptoms; R33.8 Other retention of urine; L89.612 Pressure ulcer of right heel, stage 2; I12.9 Hypertensive chronic kidney disease with stage 1 through stage 4 chronic kidney disease, or unspecified chronic kidney disease; E87.5 Hyperkalemia; Z66 Do not resuscitate; K59.00 Constipation, unspecified; R31.0 Gross hematuria; Y33.XXXA Other specified events, undetermined intent, initial encounter; Y92.230 Patient room in hospital as the place of occurrence of the external cause; B96.5 Pseudomonas (aeruginosa) (mallei) (pseudomallei) as the cause of diseases classified elsewhere; N20.0 Calculus of kidney; R26.89 Other abnormalities of gait and mobility; Z88.0 Allergy status to penicillin; Z79.899 Other long term (current) drug therapy; Z79.82 Long term (current) use of aspirin; Z91.81 History of falling; Z68.25 Body mass index [BMI] 25.0-25.9, adult; Y93.89 Activity, other specified; Y99.8 Other external cause status; Z79.84 Long term (current) use of oral hypoglycemic drugs
CPT/HCPCS: 10112

== ENCOUNTER → 2021-07-12 | Outpatient (CLI) | payer OTHER, BC ==
[~2021-07-12] MED LIST changes: +ACETAMINOPHEN325 M1 PO; +ACETAMINOPHEN650 MG RECTAL; +B-12500 MCG PO; +CARVEDILOL3.125 MG PO; +CEFDINIR300 MG PO; +MIRALAX17 GM PO; +PACERONE100 MG PO; +SUPER THERAVIT1 EACH PO; +VITAMIN D21250 MCG PO
== END ==
LOC: SJCVC 13:39
PROVIDERS: ATTEND Internal Medicine Cardiovascular Disease
DX: R94.31 Abnormal electrocardiogram [ECG] [EKG] (principal); I47.1 Supraventricular tachycardia; I25.5 Ischemic cardiomyopathy; I11.0 Hypertensive heart disease with heart failure; I50.20 Unspecified systolic (congestive) heart failure; N40.0 Benign prostatic hyperplasia without lower urinary tract symptoms; R53.81 Other malaise; J44.9 Chronic obstructive pulmonary disease, unspecified; E87.5 Hyperkalemia; I95.9 Hypotension, unspecified; I44.7 Left bundle-branch block, unspecified; N39.0 Urinary tract infection, site not specified; E78.5 Hyperlipidemia, unspecified; F17.210 Nicotine dependence, cigarettes, uncomplicated; Z72.89 Other problems related to lifestyle; Z79.82 Long term (current) use of aspirin; Z79.899 Other long term (current) drug therapy; Z95.810 Presence of automatic (implantable) cardiac defibrillator; Z82.49 Family history of ischemic heart disease and other diseases of the circulatory system; Z88.0 Allergy status to penicillin

== ENCOUNTER 2021-08-20 17:25 | Inpatient (IN) | payer OTHER, BC ==
[~2021-08-20] VITALS: Ht 188 cm; Wt 77.1 kg
[~2021-08-20 17:25] MED LIST changes: -ACETAMINOPHEN325 M1 PO; -CEFDINIR300 MG PO; -PACERONE100 MG PO; -SUPER THERAVIT1 EACH PO; -VITAMIN D21250 MCG PO
[2021-08-20 17:27] VITALS: BP 145/86
[2021-08-20 20:55] LABS: HEMATOCRIT 40.7 % (42.0-52.0); HEMOGLOBIN 13.2 gm/dL (14.0-18.0); MCH 29.4 pg (26.0-34.0); MCHC 32.5 g/dL (28.0-37.0); MCV 90.5 fL (80.0-100.0); PLATELET COUNT 129 thou/uL (150-400); RDW 15.4 % (10.5-14.5); WBC 19.9 thou/uL (4.0-11.0)
[2021-08-20 21:18] LABS: CALCIUM 8.9 mg/dL (8.5-10.1); CREATININE 1.4 mg/dL (0.7-1.3); POTASSIUM 4.8 mmol/L (3.5-5.1)
[2021-08-20 21:24] LABS: ALBUMIN 3.5 g/dL (3.4-5.0); TOTAL BILIRUBIN 1.3 mg/dL (0.2-1.0); TOTAL PROTEIN 6.8 g/dL (6.4-8.2)
[2021-08-20] MEDS ORDERED: PACERONE100 MG PO (21:45)
[2021-08-20] MEDS ORDERED: SUPER THERAVIT1 EACH PO (21:45)
[2021-08-20 21:47] LABS: ABSOLUTE NEUTROPHILS 17.5 thou/uL (1.4-8.2)
[2021-08-21 00:17] LABS: URINE BILIRUBIN NEGATIVE (Negative); URINE BLOOD 2+ (Negative); URINE CLARITY CLEAR; URINE COLOR YELLOW; URINE GLUCOSE-RANDOM* 2+ (Negative); URINE KETONES TRACE (Negative); URINE PROTEIN (DIPSTICK) NEGATIVE (Negative); URINE SPECIFIC GRAVITY 1.015 (1.005-1.035); URINE UROBILINOGEN 0.2 E.U./dl (0.2-1.0)
[2021-08-21 00:26] LABS: URINE LEUKOCYTES-REFLEX 3+ (Negative); URINE NITRITE-REFLEX POSITIVE (Negative)
[2021-08-21 00:33] LABS: CRYSTALS None Seen /LPF (None Seen); SQUAMOUS 0-3 Few /LPF (0-3); URINE RBC >20 Many /HPF (NONE SEEN); URINE WBC-REFLEX >25 Many /HPF (0-5)
[2021-08-21 00:34] LABS: CASTS None Seen /LPF (None Seen)
[2021-08-21 06:26] LABS: HEMATOCRIT 37.1 % (42.0-52.0); HEMOGLOBIN 12.2 gm/dL (14.0-18.0); MCH 29.9 pg (26.0-34.0); MCHC 32.9 g/dL (28.0-37.0); RBC 4.08 mil/uL (4.50-6.00); RDW 15.5 % (10.5-14.5); WBC 16.5 thou/uL (4.0-11.0)
[2021-08-21 06:46] LABS: CALCIUM 8.1 mg/dL (8.5-10.1); CREATININE 1.4 mg/dL (0.7-1.3); POTASSIUM 4.8 mmol/L (3.5-5.1)
[2021-08-21 07:00] VITALS: BP 137/65
[2021-08-21 07:20] VITALS: BP 142/69
[2021-08-21 08:08] VITALS: BP 145/80
--- NOTE | 2021-08-21 12:14 | NUR ---
ASSESSMENT: CM REVIEWED CHART AND SPOKE WITH PATIENT AT THE BEDSIDE. PT WAS ADMITTED WITH HIP PAIN AFTER A FALL. ORTHO HAS BEEN CONSULTED. PT REPORTS THAT HE LIVES IN A HOUSE WITH HIS SON KASHMIR. PT HAS ABOUT 3 STEPS TO ENTER THE HOME AND NO STEPS ONCE INSIDE. PT REPORTS THAT HE AMBULATES INDEPENDENTLY AND IS INDEPENDENT WITH ADLS. PT REPORTS HE HAS A GRAB BAR IN THE SHOWER WELL A CHAIR. PT STATES THAT SHE HAS HAD [email or web address] IN THE PAST AND LIKED THEM. CM DISCUSSED IF PT WERE TO NEED HH AGAIN HE PREFERS TO USE [facility]. PT/OT HAS BEEN ORDERED TO SEE PATIENT. CM WILL CONTINUE TO FOLLOW TO ASSIST NEEDED.
--- NOTE | 2021-08-21 13:23 | NUR ---
Assumed pt care at 830am.Pt arrived to unit per cart from emergency dept in stable condition.Admission hx,assessment and care plan completed. Pt son here and he signed admission papers.Consult called to Dr Harrison and he rounded on pt. Orders noted,pt went for ct abdomen and pelvis after lunch. No verbal c/o at present. Will continue to monitor.
[2021-08-21 15:57] VITALS: BP 125/69
[2021-08-21 19:32] VITALS: BP 105/47
--- NOTE | 2021-08-21 23:51 | NUR ---
ASSUMED PT CARE AT 1900.PT WAS TAKEN DOWN FOR XRAY OF HIS HIP IMMEDIATELY AFTER SHIFT CHANGE.PT WITH HX OF RETENTION,URINATED 100CC,BLADDER SCANNED HAD 583CC POST VOID BLADDER SCAN WAS 366.PT REF FOR AGARWAL CATH TO BE INSERTED DUE TO PAST BAD EXPERIENCE HE HAD.URINAL AT BEDSIDE.PT TO INFORM NURSE WHEN HE IS READY FOR AGARWAL TO BE INSERTED.CALL LIGHT WITHIN REACH.
[2021-08-22 04:23] VITALS: BP 117/57
[2021-08-22 07:59] VITALS: BP 110/56
[2021-08-22 08:10] LABS: MCH 29.7 pg (26.0-34.0); MCHC 32.8 g/dL (28.0-37.0); MCV 90.7 fL (80.0-100.0); RBC 3.42 mil/uL (4.50-6.00); RDW 15.4 % (10.5-14.5); WBC 12.3 thou/uL (4.0-11.0)
[2021-08-22 08:12] LABS: HEMOGLOBIN 10.2 gm/dL (14.0-18.0)
[2021-08-22 08:42] LABS: CALCIUM 7.8 mg/dL (8.5-10.1); CREATININE 1.4 mg/dL (0.7-1.3); POTASSIUM 4.1 mmol/L (3.5-5.1)
--- NOTE | 2021-08-22 10:36 | HC ---
[facility] [place] [facility] [address] [place] [address] CONSULTATION Name: CHESTER NICOLE Room #: 435-P [facility] IN M.R.#: [id number] Admission: 08/20/21 Attend Phys: Carlton Grove MD Discharge: Date of : 34 Report #: [id number] THIS REPORT FOR: cc: Mick Urena MD, Rene P. MD Geha, Daniel J. MD ~ DATE OF SERVICE: 08/21/2021 INFECTIOUS DISEASE CONSULTATION REFERRING PHYSICIAN: Chester Nicole MD. REASON FOR CONSULTATION: I was asked to evaluate concerning urinary tract infection, leukocytosis and fall. HISTORY OF PRESENT ILLNESS: An 89-year-old with history of diabetes, BPH, who fell on 08/20/2021 and unable to get up from his driveway. Landed on his left hip and back region. No syncopal episode. Did not have presyncopal symptoms. He was just bending down to pull up his slipper that had slipped and fell. He has had no fever, chills or sweats. Denies any abdominal pain, nausea, vomiting or diarrhea. He denies any urinary discomfort, although he does have some frequency. He has had no flank pain. No hematuria. Denies any history of nephrolithiasis. Denies any cough or sputum production. He has been vaccinated for COVID-19. He has had no travel. Lives with his son. 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 The patient does have a history of urinary retention and nephrolithiasis. ALLERGIES: ALLERGY TO PENICILLIN WITH SWELLING, although he does tolerate Zosyn. MEDICATIONS: As noted on his MRI, which were reviewed. PAST MEDICAL AND SURGICAL HISTORY: Pseudomonas urinary tract infection with bacteremia in March. Hyperkalemia, acute kidney injury, hypertension, hyperlipidemia, diabetes, BPH, coronary artery disease, SVT, status post ablation. Echocardiogram showed an EF of 50% in March, nephrolithiasis, fractured spine, reconstructive surgery of his hand, spinal stenosis, left distal humerus fracture, urinary retention, ischemic cardiomyopathy. FAMILY HISTORY: No report of tuberculosis. SOCIAL HISTORY: Smokes cigarettes. No significant alcohol intake. REVIEW OF SYSTEMS: A 14-point review is negative other than what has been described above. [facility] [place] [facility] [address] [place] [address] CONSULTATION Name: CHESTER NICOLE Room #: 435-P [facility] IN M.R.#: [id number] Admission: 08/20/21 Attend Phys: Carlton Grove MD Discharge: Date of : 34 Report #: [id number] PHYSICAL EXAMINATION: GENERAL: He is afebrile and hemodynamically stable. Alert and cooperative, in no acute distress. Sitting up in bed, eating his lunch. SKIN: Without rash or decubitus. He is of normal weight. No palpable adenopathy. HEENT: Eyes without scleral icterus or conjunctivitis. Mouth without mucositis. NECK: Supple. LUNGS: Clear to auscultation. HEART: Regular, without murmur, gallop, or rubs. ABDOMEN: Soft and nontender with no hepatosplenomegaly or mass. No CVA tenderness. BACK: No spinal tenderness. Most of his discomfort was palpating the left hip region. Range of motion in his hip was within normal limits. GENITOURINARY: External genitalia without mass or lesion. RECTAL: Examination was not performed. EXTREMITIES: With no clubbing, cyanosis or edema. Able to move all extremities. NEUROLOGIC: Cranial nerves intact. Strength in his upper and lower extremities was symmetric. Mood without anxiety or depression. Mental status was normal. LABORATORY DATA: Reviewed. Microbiology reviewed. X-rays of the chest and hip reviewed. IMPRESSION: 1. Left hip pain after a fall. Suspect contusion. 2. Urinary tract infection. 3. Leukocytosis with left shift, suspect related to his urinary tract infection. Underlying benign prostatic hypertrophy and possible urinary retention with history of nephrolithiasis. 4. Hypertension. 5. Hyperlipidemia. 6. Diabetes. 7. Coronary artery disease with ischemic cardiomyopathy. RECOMMENDATION: We will check CT scan of abdomen and pelvis to evaluate for upper urinary tract disease. Check postvoid residual. Continue broad antibiotic coverage, pending urine and blood cultures. Previously he has pseudomonas and we will ensure pseudomonal coverage is in place. CT imaging of his left hip to further evaluate his hip pain. Follow serial laboratory studies. <ELECTRONICALLY SIGNED> By: Geoffrey Harrison MD 08/22/21 [id number] Geoffrey Harrison MD /nt
[2021-08-22 11:42] LABS: ABSOLUTE NEUTROPHILS 9.2 thou/uL (1.4-8.2); BASOPHILS 0.6 % (0.0-2.0); EOSINOPHILS 5.2 % (0.0-3.0); HEMATOCRIT 31.8 % (42.0-52.0); HEMOGLOBIN 10.3 gm/dL (14.0-18.0); MCH 29.5 pg (26.0-34.0); MCHC 32.4 g/dL (28.0-37.0); MCV 91.1 fL (80.0-100.0); MONOCYTES 6.6 % (1.0-8.0); PLATELET COUNT 96 thou/uL (150-400); POLYS 80.6 % (36.0-66.0); RBC 3.49 mil/uL (4.50-6.00); RDW 15.3 % (10.5-14.5); WBC 11.4 thou/uL (4.0-11.0)
[2021-08-22 11:51] LABS: CALCIUM 7.7 mg/dL (8.5-10.1); CREATININE 1.5 mg/dL (0.7-1.3); POTASSIUM 4.3 mmol/L (3.5-5.1)
--- NOTE | 2021-08-22 11:57 | NUR ---
ON-GOING ASSESSMENT: CM REVIEWED CHART AND SPOKE WITH ATTENDING. PT IS WBAT. PT WAS INTERESTED IN [facility] BUT HAS RECENTLY BEEN THERE IN MARCH 2021. CM SPOKE WITH PATIENTS SON KASHMIR WHO REPORTS PT WENT TO [facility] AFTER [facility] AND THEY ENJOYED IF BUT WAS WANTING A REFERRAL SENT TO [facility] THEY LIVE CLOSER UP THERE. YING SPOKE WITH ALLI AT [facility] [phone] AND FAXED REFERRAL. AWAITING INPUT AT THIS TIME WELL THERAPY EVALS PT IS NOW CLEARED TO WORK WITH THERAPIES.
[2021-08-22 16:32] VITALS: BP 110/79
--- NOTE | 2021-08-22 18:30 | NUR ---
PT ASSISTED BY THERAPY TO DANGLE AND STAND AT BEDSIDE FOR FEW MINUTES BUT UNABLE TO TAKE MORE THAN 2 STEPS SO RETURNED TO BED. STATES NO PAIN UNLESS MOVING ABOUT. EATING AND DRINKING OK. CONTINUES TO HAVE URINE RETENTION AND SON EXPLAINED PT IS BEING TREATED BY DR. ALLISON AND HE IS AWARE PT RETAINS BUT NOT HAVING HIM DO STRAIGHT CATHS AT HOME. PVR 507 W/ 625 OUT THROUGH STRAIGHT CATH.
[2021-08-22 19:05] VITALS: BP 106/57
--- NOTE | 2021-08-23 00:16 | NUR ---
PT CONT TO HAVE URINE RETENSION.PRE VOID WAS 120,BLADDER SCAN AFTERWARDS SHOW 230CC.OREDR FOR URINE SAMPLE NOTED,NONE GOTTEN YET.PT AWARE.PT DENIED PAIN SO FAR.PT WBAT.PT SLEEPING AT THIS TIME.CALL LIGHT WITHIN REACH.
[2021-08-23 04:04] VITALS: BP 110/54
[2021-08-23 07:25] VITALS: BP 106/58
[2021-08-23 08:32] VITALS: BP 106/58
--- NOTE | 2021-08-23 09:37 | NUR ---
Assumed care of pt at 0700. Pt a&ox4. Denies pain when in bed. Voiding per urinal. Per noc RN, pt refusing Serna catheter. Pt will need rehab. IV antibiotics infusing. Call light within reach. Fall precautions in place. Will continue to monitor.
[2021-08-23] MEDS ORDERED: VITAMIN D21250 MCG PO (15:31)
--- NOTE | 2021-08-23 15:48 | NUR ---
ON-GOING ASSESSMENT: YING REVIEWED CHART AND SPOKE WITH PATIENT AND PTS SON AT THE BEDSIDE. PT IS MEDICALLY STABLE TO DISCHARGE TODAY TO SNF. YING SPOKE WITH GORGE AT [facility] STATING THEY CAN ACCEPT PATIENT TODAY AND SHE HAS ARRANGED FOR TRANSPORTATION TO PICKUP PT AT 1600. YING NOTIFIED ATTENDING, PT, PTS SON, AND BEDSIDE RN. CHART COPY WAS ORDERED AND CHECK CLERK NOTIFIED. AWAITING FINAL DISCHARGE ORDERS TO FAX TO FACILITY AT THIS TIME.
[2021-08-23] MEDS ORDERED: CEFDINIR300 MG PO (15:53)
[2021-08-23] MEDS ORDERED: ACETAMINOPHEN325 M1 PO (15:53)
[2021-08-24 13:27] LABS: URINE BILIRUBIN NEGATIVE (Negative); URINE BLOOD 1+ (Negative); URINE CLARITY CLEAR; URINE COLOR YELLOW; URINE GLUCOSE-RANDOM* NEGATIVE (Negative); URINE KETONES NEGATIVE (Negative); URINE LEUKOCYTES-REFLEX 3+ (Negative); URINE NITRITE-REFLEX NEGATIVE (Negative); URINE PROTEIN (DIPSTICK) NEGATIVE (Negative)
[2021-08-24 14:44] LABS: BACTERIA-REFLEX 1-9 Few /HPF (None Seen); CASTS None Seen /LPF (None Seen); SQUAMOUS 0-3 Few /LPF (0-3); URINE RBC 1-2 Rare /HPF (NONE SEEN)
[2021-08-24 14:45] LABS: CRYSTALS None Seen /LPF (None Seen)
== END 2021-08-23 17:07 | DRG 535 ==
LOC: ER 17:25 → EROBS 20:36 → 4S 20:36 → EROBS 20:37 → 4S 08-21 07:47
PROVIDERS: Nurse Practitioner; Nurse Practitioner Family; Specialist; ADMIT Hospitalist; ATTEND Hospitalist
DX: S32.592A Other specified fracture of left pubis, initial encounter for closed fracture (principal); R65.11 Systemic inflammatory response syndrome (SIRS) of non-infectious origin with acute organ dysfunction; I47.1 Supraventricular tachycardia; N39.0 Urinary tract infection, site not specified; N17.9 Acute kidney failure, unspecified; D72.829 Elevated white blood cell count, unspecified; I10 Essential (primary) hypertension; E11.9 Type 2 diabetes mellitus without complications; I25.5 Ischemic cardiomyopathy; I25.10 Atherosclerotic heart disease of native coronary artery without angina pectoris; D72.825 Bandemia; E78.5 Hyperlipidemia, unspecified; N40.1 Benign prostatic hyperplasia with lower urinary tract symptoms; R33.8 Other retention of urine; Z66 Do not resuscitate; R53.81 Other malaise; Z74.1 Need for assistance with personal care; S70.02XA Contusion of left hip, initial encounter; Z20.822 Contact with and (suspected) exposure to COVID-19; W18.39XA Other fall on same level, initial encounter; Y93.89 Activity, other specified; Y99.8 Other external cause status; Z87.442 Personal history of urinary calculi; Z88.0 Allergy status to penicillin; Z79.899 Other long term (current) drug therapy; Y92.098 Other place in other non-institutional residence as the place of occurrence of the external cause; Z23 Encounter for immunization
CPT/HCPCS: 10195

== ENCOUNTER → 2021-11-09 | Outpatient (CLI) | payer OTHER, BC ==
[~2021-11-09] MED LIST changes: +ACETAMINOPHEN325 M1 PO; +CEFDINIR300 MG PO; +PACERONE100 MG PO; +SUPER THERAVIT1 EACH PO; +VITAMIN D21250 MCG PO
== END ==
LOC: SJCVCIMAG 08:00
PROVIDERS: ATTEND Internal Medicine
DX: I08.1 Rheumatic disorders of both mitral and tricuspid valves (principal); I42.9 Cardiomyopathy, unspecified; J44.9 Chronic obstructive pulmonary disease, unspecified

== ENCOUNTER → 2022-01-12 | Outpatient (CLI) | payer OTHER, BC | LOC: SJCVC 10:05 | PROVIDERS: ATTEND Internal Medicine | DX: R94.31 Abnormal electrocardiogram [ECG] [EKG] (principal); I10 Essential (primary) hypertension; I42.9 Cardiomyopathy, unspecified; E78.5 Hyperlipidemia, unspecified; J44.9 Chronic obstructive pulmonary disease, unspecified; F17.210 Nicotine dependence, cigarettes, uncomplicated; Z95.810 Presence of automatic (implantable) cardiac defibrillator; Z88.0 Allergy status to penicillin; Z79.84 Long term (current) use of oral hypoglycemic drugs; Z79.899 Other long term (current) drug therapy; Z72.89 Other problems related to lifestyle; Z82.49 Family history of ischemic heart disease and other diseases of the circulatory system ==